=== PATIENT | male | born 1965 | race Caucasian/White ===

== ENCOUNTER → 2018-01-24 07:09 | Outpatient (CLI) | payer OTHER, SELFPAY ==
[2018-01-24 08:06] LABS: Appearance Urine UA CLEAR; Bilirubin Urine UA NEGATIVE (NEGATIVE); Color Urine UA YELLOW; Glucose Urine UA NEGATIVE (Negative); Ketones Urine UA NEGATIVE (NEGATIVE); Leukocyte Esterase Urine UA NEGATIVE (NEGATIVE); Nitrite Urine UA NEGATIVE (NEGATIVE); Occult Blood Urine UA NEGATIVE (Negative); Protein Urine UA TRACE (Negative); Specific Gravity Urine UA 1.015 (1.000-1.035); Urobilinogen Urine UA 0.2 E.U./dL (0.2); pH Urine UA 5.5 (4.5-8.0)
[2018-01-24 08:08] LABS: Add Manual Diff / Slide Review NO; Basophils Percent Auto 0.3 % (0-2); Eosinophils Percent Auto 4.9 % (2-4); Hematocrit 46.7 % (41-53); Hemoglobin 16.2 g/dL (13.5-17.5); Lymphocytes Percent Auto 14.3 % (25-40); Mean Corpuscular HGB Conc 34.6 % (30-36); Mean Corpuscular Hemoglobin 29.9 PG (26-34); Mean Corpuscular Volume 86.4 fL (80-100); Monocytes Percent Auto 8.7 % (3-14); Neutrophils Absolute Auto 4400 /uL (3000-5900); Neutrophils Percent Auto 71.8 % (50-75); Platelet Count 174 X10^3/uL (150-400); Red Blood Cell Count 5.41 X10^6/uL (4.5-5.9); Red Cell Distribution Width 14.2 % (11.6-14.8); White Blood Cell Count 6.1 X10^3/uL (4.5-11.0)
[2018-01-24 08:14] LABS: Culture Indicated Urine Cult Not Indicated; Urine Comments Microscopic Normal
[2018-01-24 08:20] LABS: Alanine Aminotransferase 34 IU/L (21-72); Albumin 4.2 g/dL (3.5-5.0); Albumin Globulin Ratio 1.5 (1.0-2.8); Alkaline Phosphatase 68 U/L (38-126); Aspartate Aminotransferase 26 IU/L (17-59); BUN Creatinine Ratio 14.3 (6-22); Bilirubin Total 0.8 mg/dL (0.2-1.3); Calcium 9.2 mg/dL (8.4-10.2); Globulin 2.8 g/dL (1.7-4.1); Glucose 103 mg/dL (70-100); HEMOLYSIS < 15 (0-50); Potassium 4.7 mmol/L (3.4-5.1); Sodium 141 mmol/L (137-145)
[2018-01-24 08:41] LABS: Creatinine Urine Random 47.9 mg/dL; Protein (Total) Urine Random 41 mg/dL (0-12); Protein Creatinine Ratio Urine 0.85 GRAM/24H
== END ==
PROVIDERS: PCP Nurse Practitioner Family; Visit Provider Specialist
DX: N18.3 Chronic kidney disease, stage 3 (moderate) (principal); I12.9 Hypertensive chronic kidney disease with stage 1 through stage 4 chronic kidney disease, or unspecified chronic kidney disease
CPT/HCPCS: 36415; 80053; 81001; 82570; 84156; 85025

== ENCOUNTER → 2018-08-08 14:00 | Outpatient (CLI) | payer OTHER, SELFPAY | PROVIDERS: PCP Nurse Practitioner Family | DX: Z23 Encounter for immunization (principal) | CPT/HCPCS: 90471; 90686 ==

== ENCOUNTER → 2019-02-05 07:06 | Outpatient (CLI) | payer OTHER, SELFPAY ==
[2019-02-05 09:00] LABS: Alanine Aminotransferase 25 IU/L (21-72); Albumin Globulin Ratio 1.4 (1.0-2.8); Alkaline Phosphatase 69 U/L (38-126); Aspartate Aminotransferase 22 IU/L (17-59); BUN Creatinine Ratio 17.1 (6-22); Bilirubin Total 0.7 mg/dL (0.2-1.3); Blood Urea Nitrogen 24 mg/dL (9-20); Calcium 9.1 mg/dL (8.4-10.2); Carbon Dioxide 27 mmol/L (22-32); Chloride 102 mmol/L (98-107); Cholesterol 113 mg/dL (140-199); Estimated Glomerular Filt Rate 52.8 mL/min (>60); Globulin 2.8 g/dL (1.7-4.1); Glucose 133 mg/dL (70-100); HDL Cholesterol 31 mg/dL (40-60); HEMOLYSIS < 15 (0-50); LDL Cholesterol Calculated 52 mg/dL (<100); Potassium 4.1 mmol/L (3.4-5.1); Sodium 137 mmol/L (137-145); Total Protein 6.8 g/dL (6.3-8.2); Triglycerides 151 mg/dL (35-150)
[2019-02-05 10:12] LABS: Hemoglobin A1C% w Est Avg Glu 7.3 % (4.0-6.0)
== END ==
PROVIDERS: Family Provider Specialist; PCP Nurse Practitioner Family; Visit Provider Internal Medicine
DX: E11.9 Type 2 diabetes mellitus without complications (principal); E78.5 Hyperlipidemia, unspecified
CPT/HCPCS: 36415; 80053; 80061; 83036

== ENCOUNTER → 2019-04-03 06:55 | Outpatient (CLI) | payer OTHER, SELFPAY ==
[2019-04-03 07:05] LABS: Bacteria Urine None Seen; RBC Urine None Seen (0-5/HPF); WBC Urine None Seen (0-5/HPF)
[2019-04-03 08:22] LABS: Appearance Urine UA CLEAR; Bilirubin Urine UA NEGATIVE (NEGATIVE); Color Urine UA YELLOW; Glucose Urine UA TRACE g/dL (Negative); Ketones Urine UA NEGATIVE (NEGATIVE); Leukocyte Esterase Urine UA NEGATIVE (NEGATIVE); Nitrite Urine UA NEGATIVE (Negative); Occult Blood Urine UA NEGATIVE (Negative); Protein Urine UA 2+ (Negative); Specific Gravity Urine UA 1.025 (1.000-1.035); Urobilinogen Urine UA 0.2 E.U./dL (0.2); pH Urine UA 5.5 (4.5-8.0)
[2019-04-03 08:59] LABS: Culture Indicated Urine Cult Not Indicated; Urine Comments Microscopic Normal
[2019-04-03 09:16] LABS: Alanine Aminotransferase 29 IU/L (21-72); Albumin 4.2 g/dL (3.5-5.0); Albumin Globulin Ratio 1.6 (1.0-2.8); Alkaline Phosphatase 76 U/L (38-126); Aspartate Aminotransferase 23 IU/L (17-59); BUN Creatinine Ratio 16.4 (6-22); Bilirubin Total 0.8 mg/dL (0.2-1.3); Blood Urea Nitrogen 23 mg/dL (9-20); Calcium 9.1 mg/dL (8.4-10.2); Carbon Dioxide 26 mmol/L (22-32); Chloride 101 mmol/L (98-107); Estimated Glomerular Filt Rate 52.8 mL/min (>60); Globulin 2.6 g/dL (1.7-4.1); Glucose 141 mg/dL (70-100); HEMOLYSIS < 15 (0-50); Phosphorous 3.9 mg/dL (2.5-4.5); Potassium 4.7 mmol/L (3.4-5.1); Sodium 138 mmol/L (137-145); Total Protein 6.8 g/dL (6.3-8.2)
[2019-04-03 16:04] LABS: Creatinine Urine Random 75.7 mg/dL
[2019-04-03 16:47] LABS: Microalbumi Creatinin Ratio Ur 1030.3 ug/mg CR (<30)
[2019-04-05 15:58] LABS: Parathyroid Hormone Int 104 pg/mL (14-64)
== END ==
PROVIDERS: Family Provider Nurse Practitioner Family; PCP Nurse Practitioner Family; Visit Provider Specialist
DX: N18.3 Chronic kidney disease, stage 3 (moderate) (principal); E78.2 Mixed hyperlipidemia; N25.0 Renal osteodystrophy; D63.1 Anemia in chronic kidney disease
CPT/HCPCS: 36415; 80053; 81001; 82043; 82570; 83970; 84100

== ENCOUNTER → 2019-04-23 07:07 | Outpatient (CLI) | payer OTHER, SELFPAY ==
[2019-04-23 09:13] LABS: Alanine Aminotransferase 22 IU/L (21-72); Albumin 4.2 g/dL (3.5-5.0); Albumin Globulin Ratio 1.4 (1.0-2.8); Alkaline Phosphatase 87 U/L (38-126); Aspartate Aminotransferase 20 IU/L (17-59); Bilirubin Total 0.6 mg/dL (0.2-1.3); Blood Urea Nitrogen 24 mg/dL (9-20); Calcium 9.6 mg/dL (8.4-10.2); Carbon Dioxide 26 mmol/L (22-32); Chloride 103 mmol/L (98-107); Estimated Glomerular Filt Rate 45.3 mL/min (>60); Globulin 3.1 g/dL (1.7-4.1); Glucose 153 mg/dL (70-100); HEMOLYSIS < 15 (0-50); Potassium 4.4 mmol/L (3.4-5.1); Sodium 140 mmol/L (137-145); Total Protein 7.3 g/dL (6.3-8.2)
== END ==
PROVIDERS: PCP Internal Medicine
DX: I10 Essential (primary) hypertension (principal); I12.9 Hypertensive chronic kidney disease with stage 1 through stage 4 chronic kidney disease, or unspecified chronic kidney disease; N18.3 Chronic kidney disease, stage 3 (moderate)
CPT/HCPCS: 36415; 80053

== ENCOUNTER → 2019-05-28 11:57 | Outpatient (CLI) | payer OTHER, SELFPAY | PROVIDERS: PCP Internal Medicine | DX: Z23 Encounter for immunization (principal) | CPT/HCPCS: 90471; 90686 ==

== ENCOUNTER → 2019-12-19 07:20 | Outpatient (CLI) | payer OTHER, SELFPAY ==
[2019-12-19 10:08] LABS: Alanine Aminotransferase 44 IU/L (<50); Albumin 4.3 g/dL (3.5-5.0); Albumin Globulin Ratio 1.4 (1.0-2.8); Alkaline Phosphatase 80 U/L (38-126); Aspartate Aminotransferase 46 IU/L (17-59); BUN Creatinine Ratio 16.5 (6-22); Bilirubin Total 0.6 mg/dL (0.2-1.3); Blood Urea Nitrogen 23 mg/dL (9-20); Calcium 9.3 mg/dL (8.4-10.2); Carbon Dioxide 25 mmol/L (22-32); Chloride 102 mmol/L (98-107); Cholesterol 148 mg/dL (140-199); Estimated Glomerular Filt Rate 53.1 mL/min (>60); Glucose 170 mg/dL (70-100); HDL Cholesterol 39 mg/dL (40-60); HEMOLYSIS < 15 (0-50); LDL Cholesterol Calculated 79 mg/dL (<100); Potassium 4.1 mmol/L (3.4-5.1); Sodium 138 mmol/L (137-145); Total Protein 7.3 g/dL (6.3-8.2); Triglycerides 152 mg/dL (35-150)
[2019-12-19 11:52] LABS: Hemoglobin A1C% w Est Avg Glu 8.4 % (4.0-6.0)
== END ==
PROVIDERS: PCP Internal Medicine; Referring Provider Internal Medicine; Visit Provider Internal Medicine
DX: E11.9 Type 2 diabetes mellitus without complications (principal)
CPT/HCPCS: 36415; 80053; 80061; 83036

== ENCOUNTER → 2020-07-01 07:12 | Outpatient (CLI) | payer OTHER, SELFPAY ==
[2020-07-01 07:17] LABS: Bacteria Urine None Seen; RBC Urine None Seen (0-5/HPF); WBC Urine None Seen (0-5/HPF)
[2020-07-01 08:05] LABS: Add Manual Diff / Slide Review NO; Basophils Absolute Auto 0 /uL (0-100); Basophils Percent Auto 0.6 % (0-2); Eosinophils Absolute Auto 400 /uL (0-450); Eosinophils Percent Auto 6.6 % (2-4); Hematocrit 47.1 % (41-53); Hemoglobin 15.7 g/dL (13.5-17.5); Lymphocytes Absolute Auto 1000 /uL (1100-4500); Lymphocytes Percent Auto 15.8 % (25-40); Mean Corpuscular HGB Conc 33.4 % (30-36); Mean Corpuscular Hemoglobin 29.2 PG (26-34); Mean Corpuscular Volume 87.7 fL (80-100); Monocytes Absolute Auto 500 /uL (0-900); Neutrophils Absolute Auto 4300 /uL (1500-7000); Platelet Count 188 X10^3/uL (150-400); Red Blood Cell Count 5.38 X10^6/uL (4.5-5.9); Red Cell Distribution Width 13.9 % (11.6-14.8); White Blood Cell Count 6.2 X10^3/uL (4.5-11.0)
[2020-07-01 08:09] LABS: Appearance Urine UA CLEAR; Bilirubin Urine UA NEGATIVE (NEGATIVE); Color Urine UA YELLOW; Glucose Urine UA 1+ g/dL (Negative); Ketones Urine UA NEGATIVE (NEGATIVE); Leukocyte Esterase Urine UA NEGATIVE (NEGATIVE); Nitrite Urine UA NEGATIVE (Negative); Occult Blood Urine UA TRACE-LYSED (Negative); Protein Urine UA 2+ (Negative); Specific Gravity Urine UA 1.015 (1.000-1.035); Urobilinogen Urine UA 0.2 E.U./dL (0.2); pH Urine UA 5.5 (4.5-8.0)
[2020-07-01 08:14] LABS: Creatinine Urine Random 66.7 mg/dL; Protein (Total) Urine Random 182 mg/dL (0-12); Protein Creatinine Ratio Urine 2.72 GRAM/24H
[2020-07-01 08:19] LABS: Hemoglobin A1C% w Est Avg Glu 9.4 % (4.0-6.0)
[2020-07-01 08:20] LABS: Culture Indicated Urine Cult Not Indicated; Urine Comments Microscopic Normal
[2020-07-01 11:45] LABS: HEMOLYSIS 27 (0-50); Prostate Specific Antigen Scrn 4.73 ng/mL (0.1-4.0)
[2020-07-01 12:33] LABS: Alanine Aminotransferase 19 IU/L (<50); Albumin 3.9 g/dL (3.5-5.0); Albumin Globulin Ratio 1.4 (1.0-2.8); Alkaline Phosphatase 101 U/L (38-126); Aspartate Aminotransferase 31 IU/L (17-59); BUN Creatinine Ratio 14.7 (6-22); Bilirubin Total 0.7 mg/dL (0.2-1.3); Blood Urea Nitrogen 21 mg/dL (9-20); Carbon Dioxide 24 mmol/L (22-32); Chloride 103 mmol/L (98-107); Estimated Glomerular Filt Rate 51.2 mL/min (>60); Globulin 2.7 g/dL (1.7-4.1); Glucose 218 mg/dL (70-100); Phosphorous 3.8 mg/dL (2.5-4.5); Potassium 4.8 mmol/L (3.4-5.1); Sodium 135 mmol/L (137-145); Total Protein 6.6 g/dL (6.3-8.2)
[2020-07-02 07:21] LABS: Parathyroid Hormone Int 86 pg/mL (15-65)
== END ==
PROVIDERS: PCP Internal Medicine; Referring Provider Internal Medicine; Visit Provider Internal Medicine
DX: E11.65 Type 2 diabetes mellitus with hyperglycemia (principal); I10 Essential (primary) hypertension; I50.30 Unspecified diastolic (congestive) heart failure; N18.30 Chronic kidney disease, stage 3 unspecified; Z12.5 Encounter for screening for malignant neoplasm of prostate
CPT/HCPCS: 36415; 80053; 81001; 82570; 83036; 83970; 84100; 84156; 85025; G0103

== ENCOUNTER → 2020-07-28 13:44 | Outpatient (CLI) | payer OTHER, SELFPAY | PROVIDERS: PCP Internal Medicine; Referring Provider Internal Medicine; Visit Provider Internal Medicine | DX: Z23 Encounter for immunization (principal) | CPT/HCPCS: 90471; 90686 ==

== ENCOUNTER → 2020-08-21 09:56 | Outpatient (CLI) | payer OTHER, SELFPAY | PROVIDERS: PCP Internal Medicine; Referring Provider Internal Medicine; Visit Provider Internal Medicine | DX: R97.20 Elevated prostate specific antigen [PSA] (principal) | CPT/HCPCS: 36415; 84153; 84154 ==

== ENCOUNTER → 2020-09-03 09:21 | Outpatient (CLI) | payer OTHER, SELFPAY ==
[2020-09-03] MEDS: COVID-19 VACC(MODERNA-1)/PF 100 MCG/0.5 ML VIAL IM (09:28)
== END ==
PROVIDERS: PCP Internal Medicine; Visit Provider Internal Medicine
DX: Z23 Encounter for immunization (principal)
CPT/HCPCS: 0011A; 91301

== ENCOUNTER → 2020-09-30 08:33 | Outpatient (CLI) | payer OTHER, SELFPAY ==
[2020-09-30] MEDS: COVID-19 VACC #2, MRNA(MOD) 100 MCG/0.5 ML VIAL IM (08:38)
== END ==
PROVIDERS: PCP Internal Medicine; Visit Provider Internal Medicine
DX: Z23 Encounter for immunization (principal)
CPT/HCPCS: 0012A; 91301

== ENCOUNTER → 2020-12-23 07:01 | Outpatient (CLI) | payer OTHER, SELFPAY ==
[2020-12-23 08:00] LABS: BUN Creatinine Ratio 20.3 (6-22); Blood Urea Nitrogen 30 mg/dL (9-20); Calcium 9.4 mg/dL (8.4-10.2); Carbon Dioxide 27 mmol/L (22-32); Chloride 102 mmol/L (98-107); Estimated Glomerular Filt Rate 49.2 mL/min (>60); Glucose 227 mg/dL (70-100); HEMOLYSIS < 15 (0-50); Phosphorous 4.2 mg/dL (2.5-4.5); Potassium 4.9 mmol/L (3.4-5.1); Sodium 135 mmol/L (137-145)
[2020-12-24 06:02] LABS: Parathyroid Hormone Int 72 pg/mL (15-65)
== END ==
PROVIDERS: PCP Internal Medicine; Referring Provider Internal Medicine Nephrology; Visit Provider Internal Medicine Nephrology
DX: N18.31 Chronic kidney disease, stage 3a (principal)
CPT/HCPCS: 36415; 80069; 82306; 83970

== ENCOUNTER → 2021-02-03 07:16 | Outpatient (CLI) | payer OTHER, SELFPAY ==
[2021-02-03 08:16] LABS: Hemoglobin A1C% w Est Avg Glu 9.9 % (4.0-6.0)
[2021-02-03 08:21] LABS: Alanine Aminotransferase 21 IU/L (<50); Albumin 3.6 g/dL (3.5-5.0); Albumin Globulin Ratio 1.4 (1.0-2.8); Alkaline Phosphatase 85 U/L (38-126); Aspartate Aminotransferase 25 IU/L (17-59); BUN Creatinine Ratio 16.6 (6-22); Bilirubin Total 0.4 mg/dL (0.2-1.3); Blood Urea Nitrogen 24 mg/dL (9-20); Calcium 9.1 mg/dL (8.4-10.2); Carbon Dioxide 27 mmol/L (22-32); Chloride 102 mmol/L (98-107); Estimated Glomerular Filt Rate 50.3 mL/min (>60); Globulin 2.5 g/dL (1.7-4.1); Glucose 215 mg/dL (70-100); HEMOLYSIS < 15 (0-50); Potassium 4.9 mmol/L (3.4-5.1); Sodium 136 mmol/L (137-145); Total Protein 6.1 g/dL (6.3-8.2)
== END ==
PROVIDERS: PCP Internal Medicine; Referring Provider Internal Medicine; Visit Provider Internal Medicine
DX: E11.65 Type 2 diabetes mellitus with hyperglycemia (principal); I10 Essential (primary) hypertension
CPT/HCPCS: 36415; 80053; 83036

== ENCOUNTER → 2021-03-18 11:22 | Outpatient (CLI) | payer OTHER, SELFPAY ==
[2021-03-18 12:28] LABS: Hemoglobin A1C% w Est Avg Glu 9.1 % (4.0-6.0)
[2021-03-18 12:44] LABS: BUN Creatinine Ratio 17.2 (6-22); Blood Urea Nitrogen 27 mg/dL (9-20); Calcium 9.6 mg/dL (8.4-10.2); Carbon Dioxide 28 mmol/L (22-32); Chloride 102 mmol/L (98-107); Estimated Glomerular Filt Rate 45.9 mL/min (>60); Glucose 160 mg/dL (70-100); HEMOLYSIS < 15 (0-50); Sodium 136 mmol/L (137-145)
== END ==
PROVIDERS: PCP Internal Medicine; Referring Provider Internal Medicine; Visit Provider Internal Medicine
DX: E11.65 Type 2 diabetes mellitus with hyperglycemia (principal); I10 Essential (primary) hypertension
CPT/HCPCS: 36415; 80048; 83036

== ENCOUNTER → 2021-08-02 11:19 | Outpatient (CLI) | payer OTHER, SELFPAY ==
[2021-08-02 13:08] LABS: Add Manual Diff / Slide Review NO; Basophils Absolute Auto 0 /uL (0-100); Basophils Percent Auto 0.4 % (0-2); Eosinophils Absolute Auto 300 /uL (0-450); Eosinophils Percent Auto 4.8 % (2-4); Hematocrit 42.3 % (41-53); Hemoglobin 14.5 g/dL (13.5-17.5); Lymphocytes Absolute Auto 1200 /uL (1100-4500); Lymphocytes Percent Auto 18.3 % (25-40); Mean Corpuscular HGB Conc 34.2 % (30-36); Mean Corpuscular Hemoglobin 29.7 PG (26-34); Mean Corpuscular Volume 86.7 fL (80-100); Monocytes Absolute Auto 500 /uL (0-900); Monocytes Percent Auto 7.1 % (3-14); Neutrophils Absolute Auto 4400 /uL (1500-7000); Neutrophils Percent Auto 69.4 % (50-75); Platelet Count 172 X10^3/uL (150-400); Red Blood Cell Count 4.88 X10^6/uL (4.5-5.9); Red Cell Distribution Width 13.9 % (11.6-14.8); White Blood Cell Count 6.4 X10^3/uL (4.5-11.0)
[2021-08-02 14:04] LABS: Albumin 3.8 g/dL (3.5-5.0); Blood Urea Nitrogen 26 mg/dL (9-20); Calcium 9.1 mg/dL (8.4-10.2); Carbon Dioxide 30 mmol/L (22-32); Chloride 100 mmol/L (98-107); Estimated Glomerular Filt Rate 44.1 mL/min (>60); Glucose 177 mg/dL (70-100); HEMOLYSIS < 15 (0-50); Phosphorous 3.3 mg/dL (2.5-4.5); Potassium 5.3 mmol/L (3.4-5.1); Sodium 136 mmol/L (137-145)
[2021-08-02 15:41] LABS: Creatinine Urine Random 152.8 mg/dL
[2021-08-02 15:56] LABS: Vitamin D 25 Hydroxy (D3) 39.2 ng/mL (30.0-100.0)
[2021-08-02 16:44] LABS: Microalbumi Creatinin Ratio Ur 6321.9 ug/mg CR (<30)
[2021-08-03 09:04] LABS: Parathyroid Hormone Int 105 pg/mL (15-65)
== END ==
PROVIDERS: PCP Internal Medicine; Referring Provider Internal Medicine Nephrology; Visit Provider Internal Medicine Nephrology
DX: N18.31 Chronic kidney disease, stage 3a (principal); E83.39 Other disorders of phosphorus metabolism
CPT/HCPCS: 36415; 80069; 82043; 82306; 82570; 83970; 85025

== ENCOUNTER → 2021-08-18 16:11 | Outpatient (CLI) | payer OTHER, SELFPAY ==
[2021-08-18 18:44] LABS: BUN Creatinine Ratio 16.9 (6-22); Blood Urea Nitrogen 28 mg/dL (9-20); Calcium 9.3 mg/dL (8.4-10.2); Carbon Dioxide 29 mmol/L (22-32); Chloride 102 mmol/L (98-107); Estimated Glomerular Filt Rate 42.9 mL/min (>60); Glucose 205 mg/dL (70-100); HEMOLYSIS < 15 (0-50); Potassium 4.7 mmol/L (3.4-5.1); Sodium 136 mmol/L (137-145)
[2021-08-18 19:39] LABS: Creatinine Urine Random 119.1 mg/dL
[2021-08-18 20:05] LABS: Protein (Total) Urine Random 535 mg/dL (0-12); Protein Creatinine Ratio Urine 4.49 GRAM/24H
[2021-08-19 03:51] LABS: Complement C3 147 mg/dL (82-167)
[2021-08-19 14:41] LABS: Free Kappa Lt Chains, Serum 39.2 mg/L (3.3-19.4); Free Lambda Lt Chains,Serum 43.4 mg/L (5.7-26.3)
[2021-08-19 15:35] LABS: HIV 1 & 2 Ab/Ag 4th Gen Combo NEGATIVE (NEGATIVE); Hep C Virus Ab w/Reflex Quant NEGATIVE s/c (NEGATIVE)
[2021-08-20 13:18] LABS: Cytoplasmic C-ANCA <1:20 titer (Neg:<1:20); Perinuclear P-ANCA <1:20 titer (Neg:<1:20)
[2021-08-20 15:05] LABS: Albumin 3.6 g/dL (2.9-4.4); Alpha-1 Globulin, Ur 4.9 % (.); Alpha-1-Globulin 0.2 g/dL (0.0-0.4); Alpha-2-Globulin 0.8 g/dL (0.4-1.0); Beta Globulin, Ur 14.5 % (.); Gamma Globulin 0.9 g/dL (0.4-1.8); Gamma Globulin, Ur 11.8 % (.); Globulin Total 2.8 g/dL (2.2-3.9); Immunoglobulin A, Serum 146 mg/dL (90-386); Immunoglobulin G,Serum 785 mg/dL (603-1613); Immunoglobulin M, Serum 84 mg/dL (20-172); M-Spike % Not Observed % (Not Observed); Protein, Total 6.4 g/dL (6.0-8.5); Urine Total Protein 381.9 mg/dL (Not Estab.)
[2021-08-20 18:12] LABS: ANA Screen, IFA Positive (.)
== END ==
PROVIDERS: PCP Internal Medicine; Referring Provider Internal Medicine Nephrology; Visit Provider Internal Medicine Nephrology
DX: R80.9 Proteinuria, unspecified (principal)
CPT/HCPCS: 36415; 80048; 82570; 82784; 83516; 83883; 84155; 84156; 84165; 84166; 86038; 86160; 86256; 86334; 86335; 86803; 87389

== ENCOUNTER → 2021-10-25 12:08 | Outpatient (CLI) | payer OTHER, SELFPAY ==
--- NOTE | 2021-10-25 | DI.ECHO.S_ITS ---
[facility]---------+ [facility] +---------+ : : [address] : [address] : : : : [id number] : : : : Phone: [phone]+ Echocardiogram Report + + :Name: LORE SOW Study Date: 10/25/2021 Height: 73 in : :[facility] ReadingLocation: Weight: 300 lb : : Gender: Male BSA: 2.6 m2 : :: 1965 Age: 56 yrs BP: 192/110 mmHg: :Reason For Study: ATRIAL FIBRILLATION : :Ordering Physician: UBALDO, : :BO[place]ON Performed By: Anyi Cao : :Referring: BOSTON CONNER : + + Interpretation Summary The left ventricle is normal in size. The ejection fraction is estimated to be 60-65%. No significant change in LVEF from the previous study. Diastolic parameters suggest a pseudonormalization pattern, consistent with probable elevated filling pressures. The right ventricle is normal in size and function. No significant valvular pathology seen. The right ventricular systolic pressure is estimated to be at least 38 mmHg based on an estimated right atrial pressure of 3 mm Hg. Compared to the prior echo exam, there has been no change in the severity of pulmonary hypertension. The ascending aorta is mild-moderately enlarged. 4.1 cm in diameter. Previously 3.7 cm. The aortic arch is mildly enlarged. BP: 192/110 mmHg Procedure: A two-dimensional transthoracic echocardiogram with color flow and Doppler was performed. The study quality was technically adequate. Comparison is made with the echocardiogram of 03/20/2014. The patient was in sinus bradycardia with heart rates between 55-66 bpm during the exam. Left Ventricle: The left ventricle is normal in size. There is mild concentric left ventricular hypertrophy. Proximal septal thickening is noted. There is no echo evidence for significant left ventricular outflow tract obstruction. There is no thrombus. The ejection fraction is estimated to be 60-65%. There are no focal wall motion abnormalities. Diastolic parameters suggest a pseudonormalization pattern, consistent with probable elevated filling pressures. Right Ventricle: The right ventricle is normal in size and function. Atria: The left atrial size is normal. Both atria have mildly decreased in size since the prior echo exam. Right atrial size is normal. There is no Doppler evidence for an interatrial shunt. Mitral Valve: The mitral valve leaflets are slightly calcified. There is trace mitral regurgitation. Aortic Valve: The aortic valve is trileaflet. The aortic valve opens well. There is no aortic valve stenosis. There is trace aortic regurgitation. This is unchanged compared to the previous study. Tricuspid Valve: The tricuspid valve is normal in structure and function. There is trace tricuspid regurgitation. The right ventricular systolic pressure is estimated to be at least 38 mmHg based on an estimated right atrial pressure of 3 mm Hg. Compared to the prior echo exam, there has been no change in TR severity. Compared to the prior echo exam, there has been no change in the severity of pulmonary hypertension. Pulmonic Valve: The pulmonic valve is not well visualized. There is trace pulmonic regurgitation. Great Vessels: The aortic root is normal size. The ascending aorta is mild- moderately enlarged. The aortic arch is mildly enlarged. The IVC is of normal diameter and collapses greater than 50% with a sniff. This suggests a low right atrial pressure of 3 mm Hg. Pericardium/ Pleura There is no pericardial effusion. There is an anterior echo-free space consistent with a fat pad. There is no pleural effusion. MMode/2D Measurements & Calculations LVIDd: 5.2 cm LVOT diam: 2.5 cm LVIDs: 3.3 cm Ao root diam: 3.8 cm FS: 36.8 % asc Aorta Diam: 4.1 cm IVSd: 1.2 cm Ao Arch Diam (Prox Trans): 3.5 cm LVPWd: 1.1 cm LV uf. diameter/BSA (cm/m^2): 2.0 LV sys. diameter/BSA (cm/m^2): 1.3 LA A2 area: 27.2 cm2 RA long axis: 5.3 cm LA A4 area: 19.6 cm2 RA area: 14.7 cm2 LA length (vol): 6.1 cm RA vol: 34.9 ml LA vol: 75.0 ml RA : 13.6 ml/m2 LA vol index: 29.3 ml/m2 IVC diam: 1.7 cm RVD1 (basal): 3.3 cm TAPSE: 2.2 cm Doppler Measurements & Calculations Ao V2 max: 140.2 cm/sec LVOT Max Jam: 90.4 cm/sec Ao V2 mean: 97.8 cm/sec LV V1 max P.3 mmHg Ao max P.9 mmHg LV V1 VTI: 21.1 cm Ao mean P.2 mmHg NOHEMI(I,D): 3.5 cm2 Ao V2 VTI: 30.5 cm NOHEMI(V,D): 3.3 cm2 sev ratio: 0.69 NOHEMI indexed to BSA (cm^2/m^2): 1.4 MV E max jam: 109.2 cm/sec TR max jam: 295.0 cm/sec MV A max jam: 75.6 cm/sec TR max P.8 mmHg MV E/A: 1.4 PA V2 max: 111.3 cm/sec Med Peak E' Jam: 5.2 cm/sec PA V2 mean: 75.4 cm/sec E/E' med: 21.0 PA mean P.5 mmHg Lat Peak E' Jam: 8.9 cm/sec PA pr(Accel): 32.8 mmHg E/E' lat: 12.3 E/e' average: 16.7 MV dec time: 0.18 sec SV(LVOT): 107.0 ml Reading Physician:11:07 AM
== END ==
PROVIDERS: PCP Internal Medicine; Referring Provider Internal Medicine Cardiovascular Disease; Visit Provider Internal Medicine Cardiovascular Disease
DX: I77.89 Other specified disorders of arteries and arterioles (principal); I48.0 Paroxysmal atrial fibrillation
CPT/HCPCS: 93306

== ENCOUNTER → 2021-10-27 06:54 | Outpatient (CLI) | payer OTHER, SELFPAY ==
[2021-10-27 08:20] LABS: BUN Creatinine Ratio 16.7 (6-22); Blood Urea Nitrogen 30 mg/dL (9-20); Calcium 8.9 mg/dL (8.4-10.2); Carbon Dioxide 30 mmol/L (22-32); Chloride 102 mmol/L (98-107); Cholesterol 186 mg/dL (140-199); Estimated Glomerular Filt Rate 39.1 mL/min (>60); Glucose 189 mg/dL (70-100); HDL Cholesterol 40 mg/dL (40-60); HEMOLYSIS < 15 (0-50); LDL Cholesterol Calculated 109 mg/dL (<100); Sodium 135 mmol/L (137-145); Triglycerides 185 mg/dL (35-150)
[2021-10-27 08:23] LABS: Potassium 5.4 mmol/L (3.4-5.1)
== END ==
PROVIDERS: PCP Internal Medicine; Referring Provider Internal Medicine Cardiovascular Disease; Visit Provider Internal Medicine Cardiovascular Disease
DX: I10 Essential (primary) hypertension (principal); E78.5 Hyperlipidemia, unspecified
CPT/HCPCS: 36415; 80048; 80061

== ENCOUNTER → 2021-11-16 07:05 | Outpatient (CLI) | payer OTHER, SELFPAY ==
[2021-11-16 08:44] LABS: Add Manual Diff / Slide Review NO; Basophils Absolute Auto 0 /uL (0-100); Basophils Percent Auto 0.3 % (0-2); Eosinophils Absolute Auto 300 /uL (0-450); Eosinophils Percent Auto 5.4 % (2-4); Hematocrit 44.5 % (41-53); Lymphocytes Absolute Auto 700 /uL (1100-4500); Lymphocytes Percent Auto 12.6 % (25-40); Mean Corpuscular HGB Conc 33.7 % (30-36); Mean Corpuscular Hemoglobin 29.3 PG (26-34); Mean Corpuscular Volume 87.1 fL (80-100); Monocytes Absolute Auto 500 /uL (0-900); Neutrophils Absolute Auto 4200 /uL (1500-7000); Neutrophils Percent Auto 72.7 % (50-75); Platelet Count 165 X10^3/uL (150-400); Red Cell Distribution Width 13.9 % (11.6-14.8); White Blood Cell Count 5.8 X10^3/uL (4.5-11.0)
[2021-11-16 09:11] LABS: Albumin 3.7 g/dL (3.5-5.0); BUN Creatinine Ratio 12.9 (6-22); Blood Urea Nitrogen 22 mg/dL (9-20); Calcium 8.7 mg/dL (8.4-10.2); Carbon Dioxide 27 mmol/L (22-32); Chloride 101 mmol/L (98-107); Estimated Glomerular Filt Rate 41.5 mL/min (>60); Glucose 178 mg/dL (70-100); HEMOLYSIS < 15 (0-50); Phosphorous 3.7 mg/dL (2.5-4.5); Potassium 4.6 mmol/L (3.4-5.1); Sodium 136 mmol/L (137-145)
[2021-11-16 09:18] LABS: Appearance Urine UA CLEAR; Bilirubin Urine UA NEGATIVE (NEGATIVE); Color Urine UA YELLOW; Glucose Urine UA 3+ g/dL (Negative); Ketones Urine UA NEGATIVE (NEGATIVE); Leukocyte Esterase Urine UA NEGATIVE (NEGATIVE); Nitrite Urine UA NEGATIVE (Negative); Occult Blood Urine UA TRACE-LYSED (Negative); Protein Urine UA 3+ (Negative); Specific Gravity Urine UA 1.015 (1.000-1.035); Urobilinogen Urine UA 0.2 E.U./dL (0.2); pH Urine UA 6.5 (4.5-8.0)
[2021-11-16 09:31] LABS: Amorphous Sediment Urine 2+; Bacteria Urine None Seen; Culture Indicated Urine Cult Not Indicated; RBC Urine 0-1/HPF (0-5/HPF); Squamous Epithelial Cell Urine 1-5 /HPF (0-5/HPF); WBC Urine None Seen (0-5/HPF)
[2021-11-16 11:45] LABS: Creatinine Urine Random 86.2 mg/dL
[2021-11-16 11:46] LABS: Protein (Total) Urine Random 353 mg/dL (0-12); Protein Creatinine Ratio Urine 4.09 GRAM/24H
== END ==
PROVIDERS: PCP Internal Medicine; Referring Provider Internal Medicine Nephrology; Visit Provider Internal Medicine Nephrology
DX: R80.9 Proteinuria, unspecified (principal); N18.32 Chronic kidney disease, stage 3b
CPT/HCPCS: 36415; 80069; 81001; 82570; 84156; 85025

== ENCOUNTER → 2022-03-02 06:59 | Outpatient (CLI) | payer OTHER, SELFPAY ==
[2022-03-02 08:13] LABS: Add Manual Diff / Slide Review NO; Basophils Absolute Auto 0 /uL (0-100); Basophils Percent Auto 0.5 % (0-2); Eosinophils Absolute Auto 300 /uL (0-450); Eosinophils Percent Auto 4.9 % (2-4); Hematocrit 46.9 % (41-53); Hemoglobin 15.8 g/dL (13.5-17.5); Lymphocytes Absolute Auto 800 /uL (1100-4500); Lymphocytes Percent Auto 12.5 % (25-40); Mean Corpuscular HGB Conc 33.7 % (30-36); Mean Corpuscular Volume 86.1 fL (80-100); Monocytes Absolute Auto 500 /uL (0-900); Neutrophils Absolute Auto 4800 /uL (1500-7000); Neutrophils Percent Auto 74.1 % (50-75); Platelet Count 173 X10^3/uL (150-400); Red Blood Cell Count 5.45 X10^6/uL (4.5-5.9); Red Cell Distribution Width 14.4 % (11.6-14.8); White Blood Cell Count 6.4 X10^3/uL (4.5-11.0)
[2022-03-02 08:32] LABS: Microalbumi Creatinin Ratio Ur 1397.2 ug/mg CR (<30); Microalbumin Urine Random 50.3 mg/dL (0-1.6)
[2022-03-02 08:42] LABS: Albumin 3.9 g/dL (3.5-5.0); BUN Creatinine Ratio 14.5 (6-22); Blood Urea Nitrogen 24 mg/dL (9-20); Calcium 8.6 mg/dL (8.4-10.2); Carbon Dioxide 25 mmol/L (22-32); Chloride 102 mmol/L (98-107); Estimated Glomerular Filt Rate 48 mL/min (>60); Glucose 168 mg/dL (70-100); HEMOLYSIS < 15 (0-50); Phosphorous 3.8 mg/dL (2.5-4.5); Sodium 137 mmol/L (137-145)
[2022-03-02 08:44] LABS: Hemoglobin A1C% w Est Avg Glu 9.6 % (4.0-6.0)
[2022-03-02 08:53] LABS: Vitamin D 25 Hydroxy (D3) 50.4 ng/mL (30.0-100.0)
[2022-03-02 09:08] LABS: Prostate Specific Antigen 5.63 ng/mL (0.10-4.00)
[2022-03-03 11:25] LABS: Parathyroid Hormone Int 115 pg/mL (15-65)
== END ==
PROVIDERS: PCP Internal Medicine; Referring Provider Internal Medicine Nephrology; Visit Provider Internal Medicine Nephrology
DX: N18.31 Chronic kidney disease, stage 3a (principal); E83.39 Other disorders of phosphorus metabolism; E11.65 Type 2 diabetes mellitus with hyperglycemia; R97.20 Elevated prostate specific antigen [PSA]
CPT/HCPCS: 36415; 80069; 82043; 82306; 82570; 83036; 83970; 84153; 85025

== ENCOUNTER → 2022-07-01 07:01 | Outpatient (CLI) | payer OTHER, SELFPAY ==
[2022-07-01 10:05] LABS: Hemoglobin A1C% w Est Avg Glu 8.6 % (4.0-6.0)
[2022-07-01 10:31] LABS: Alanine Aminotransferase 20 IU/L (<50); Albumin 3.8 g/dL (3.5-5.0); Albumin Globulin Ratio 1.4 (1.0-2.8); Alkaline Phosphatase 74 U/L (38-126); Aspartate Aminotransferase 21 IU/L (17-59); BUN Creatinine Ratio 16.9 (6-22); Bilirubin Total 0.6 mg/dL (0.2-1.3); Blood Urea Nitrogen 31 mg/dL (9-20); Calcium 8.7 mg/dL (8.4-10.2); Carbon Dioxide 26 mmol/L (22-32); Chloride 101 mmol/L (98-107); Estimated Glomerular Filt Rate 42 mL/min (>60); Globulin 2.8 g/dL (1.7-4.1); Glucose 152 mg/dL (70-100); HEMOLYSIS < 15 (0-50); Potassium 4.5 mmol/L (3.4-5.1); Sodium 138 mmol/L (137-145); Total Protein 6.6 g/dL (6.3-8.2)
== END ==
PROVIDERS: PCP Internal Medicine; Referring Provider Internal Medicine; Visit Provider Internal Medicine
DX: E11.65 Type 2 diabetes mellitus with hyperglycemia (principal); I10 Essential (primary) hypertension; N18.32 Chronic kidney disease, stage 3b
CPT/HCPCS: 36415; 80053; 83036

== ENCOUNTER → 2022-07-15 13:19 | Outpatient (CLI) | payer OTHER, SELFPAY | PROVIDERS: PCP Internal Medicine; Referring Provider Internal Medicine; Visit Provider Internal Medicine | DX: Z23 Encounter for immunization (principal) | CPT/HCPCS: 90471; 90686 ==

== ENCOUNTER → 2022-07-20 07:01 | Outpatient (CLI) | payer OTHER, SELFPAY ==
[2022-07-20 08:07] LABS: Hemoglobin A1C% w Est Avg Glu 9.3 % (4.0-6.0)
[2022-07-20 08:26] LABS: BUN Creatinine Ratio 19.8 (6-22); Blood Urea Nitrogen 33 mg/dL (9-20); Calcium 8.6 mg/dL (8.4-10.2); Carbon Dioxide 21 mmol/L (22-32); Chloride 104 mmol/L (98-107); Estimated Glomerular Filt Rate 47 mL/min (>60); Glucose 185 mg/dL (70-100); HEMOLYSIS < 15 (0-50); Phosphorous 3.7 mg/dL (2.5-4.5); Potassium 4.3 mmol/L (3.4-5.1); Sodium 136 mmol/L (137-145)
[2022-07-20 10:31] LABS: Creatinine Urine Random 87.8 mg/dL; Protein (Total) Urine Random 191 mg/dL (0-12); Protein Creatinine Ratio Urine 2.17 GRAM/24H
[2022-07-20 10:49] LABS: Microalbumi Creatinin Ratio Ur 988.6 ug/mg CR (<30); Microalbumin Urine Random 86.8 mg/dL (0-1.6)
[2022-07-21 09:42] LABS: Parathyroid Hormone Int 92 pg/mL (15-65)
== END ==
PROVIDERS: PCP Internal Medicine; Referring Provider Internal Medicine Nephrology; Visit Provider Internal Medicine Nephrology
DX: N18.32 Chronic kidney disease, stage 3b (principal); E11.22 Type 2 diabetes mellitus with diabetic chronic kidney disease; R80.9 Proteinuria, unspecified
CPT/HCPCS: 36415; 80069; 82043; 82570; 83036; 83970; 84156

== ENCOUNTER → 2022-09-28 06:54 | Outpatient (CLI) | payer OTHER, SELFPAY ==
[2022-09-28 07:34] LABS: Add Manual Diff / Slide Review NO; Basophils Absolute Auto 0 /uL (0-100); Basophils Percent Auto 0.4 % (0-2); Eosinophils Absolute Auto 300 /uL (0-450); Eosinophils Percent Auto 5.3 % (2-4); Hematocrit 41.3 % (41-53); Lymphocytes Absolute Auto 800 /uL (1100-4500); Lymphocytes Percent Auto 11.8 % (25-40); Mean Corpuscular HGB Conc 33.8 % (30-36); Mean Corpuscular Hemoglobin 29.4 PG (26-34); Mean Corpuscular Volume 86.9 fL (80-100); Monocytes Absolute Auto 500 /uL (0-900); Monocytes Percent Auto 8.5 % (3-14); Neutrophils Absolute Auto 4800 /uL (1500-7000); Platelet Count 180 X10^3/uL (150-400); Red Blood Cell Count 4.76 X10^6/uL (4.5-5.9); Red Cell Distribution Width 14.3 % (11.6-14.8); White Blood Cell Count 6.4 X10^3/uL (4.5-11.0)
[2022-09-28 07:42] LABS: Hemoglobin A1C% w Est Avg Glu 8.9 % (4.0-6.0)
[2022-09-28 08:41] LABS: Albumin 3.8 g/dL (3.5-5.0); BUN Creatinine Ratio 14.4 (6-22); Blood Urea Nitrogen 25 mg/dL (9-20); Calcium 8.7 mg/dL (8.4-10.2); Carbon Dioxide 26 mmol/L (22-32); Chloride 102 mmol/L (98-107); Estimated Glomerular Filt Rate 45 mL/min (>60); Glucose 181 mg/dL (70-100); HEMOLYSIS < 15 (0-50); Phosphorous 3.9 mg/dL (2.5-4.5); Potassium 4.9 mmol/L (3.4-5.1); Sodium 136 mmol/L (137-145)
[2022-09-28 09:05] LABS: Appearance Urine UA CLEAR; Bilirubin Urine UA NEGATIVE (NEGATIVE); Color Urine UA YELLOW; Glucose Urine UA TRACE g/dL (Negative); Ketones Urine UA NEGATIVE (NEGATIVE); Leukocyte Esterase Urine UA NEGATIVE (NEGATIVE); Nitrite Urine UA NEGATIVE (Negative); Occult Blood Urine UA NEGATIVE (Negative); Protein Urine UA 2+ (Negative); Urobilinogen Urine UA 0.2 E.U./dL (0.2)
[2022-09-28 09:11] LABS: Bacteria Urine None Seen; Culture Indicated Urine Cult Not Indicated; RBC Urine None Seen (0-5/HPF); Urine Comments Microscopic Normal; WBC Urine None Seen (0-5/HPF)
[2022-09-28 09:14] LABS: Creatinine Urine Random 102.5 mg/dL
[2022-09-28 09:20] LABS: Protein (Total) Urine Random 300 mg/dL (0-12); Protein Creatinine Ratio Urine 2.92 GRAM/24H
== END ==
PROVIDERS: PCP Internal Medicine; Referring Provider Internal Medicine Nephrology; Visit Provider Internal Medicine Nephrology
DX: R80.9 Proteinuria, unspecified (principal); N18.32 Chronic kidney disease, stage 3b; E11.65 Type 2 diabetes mellitus with hyperglycemia; I10 Essential (primary) hypertension
CPT/HCPCS: 36415; 80069; 81001; 82043; 82570; 83036; 84156; 85025

== ENCOUNTER → 2022-12-21 06:29 | Outpatient (CLI) | payer OTHER, SELFPAY ==
[2022-12-21 07:47] LABS: Appearance Urine UA CLEAR; Bilirubin Urine UA NEGATIVE (NEGATIVE); Color Urine UA YELLOW; Glucose Urine UA 3+ g/dL (Negative); Ketones Urine UA NEGATIVE (NEGATIVE); Leukocyte Esterase Urine UA NEGATIVE (NEGATIVE); Nitrite Urine UA NEGATIVE (Negative); Occult Blood Urine UA NEGATIVE (Negative); Protein Urine UA 1+ (Negative); Specific Gravity Urine UA 1.015 (1.000-1.035); Urobilinogen Urine UA 0.2 E.U./dL (0.2); pH Urine UA 5.5 (4.5-8.0)
[2022-12-21 07:49] LABS: RBC Urine None Seen (0-5/HPF); WBC Urine None Seen (0-5/HPF)
[2022-12-21 07:50] LABS: Bacteria Urine None Seen; Culture Indicated Urine Cult Not Indicated; Urine Comments Microscopic Normal
[2022-12-21 08:06] LABS: Add Manual Diff / Slide Review NO; Basophils Absolute Auto 0 /uL (0-100); Basophils Percent Auto 0.4 % (0-2); Eosinophils Absolute Auto 500 /uL (0-450); Eosinophils Percent Auto 6.9 % (2-4); Hematocrit 48.2 % (41-53); Hemoglobin 16.2 g/dL (13.5-17.5); Lymphocytes Absolute Auto 1000 /uL (1100-4500); Lymphocytes Percent Auto 15.5 % (25-40); Mean Corpuscular HGB Conc 33.7 % (30-36); Mean Corpuscular Hemoglobin 29.4 PG (26-34); Mean Corpuscular Volume 87.3 fL (80-100); Monocytes Absolute Auto 500 /uL (0-900); Monocytes Percent Auto 7.8 % (3-14); Neutrophils Absolute Auto 4500 /uL (1500-7000); Neutrophils Percent Auto 69.4 % (50-75); Platelet Count 192 X10^3/uL (150-400); Red Blood Cell Count 5.52 X10^6/uL (4.5-5.9); Red Cell Distribution Width 14.7 % (11.6-14.8); White Blood Cell Count 6.6 X10^3/uL (4.5-11.0)
[2022-12-21 08:23] LABS: Creatinine Urine Random 60.3 mg/dL; Protein (Total) Urine Random 102 mg/dL (0-12); Protein Creatinine Ratio Urine 1.69 GRAM/24H
[2022-12-21 08:29] LABS: Albumin 4.1 g/dL (3.5-5.0); BUN Creatinine Ratio 14.1 (6-22); Blood Urea Nitrogen 26 mg/dL (9-20); Carbon Dioxide 25 mmol/L (22-32); Chloride 100 mmol/L (98-107); Cholesterol 180 mg/dL (140-199); Estimated Glomerular Filt Rate 42 mL/min (>60); Glucose 176 mg/dL (70-100); HDL Cholesterol 41 mg/dL (40-60); HEMOLYSIS < 15 (0-50); LDL Cholesterol Calculated 100 mg/dL (<100); Phosphorous 4.1 mg/dL (2.5-4.5); Potassium 4.8 mmol/L (3.4-5.1); Sodium 135 mmol/L (137-145); Triglycerides 194 mg/dL (35-150)
[2022-12-21 09:09] LABS: Microalbumi Creatinin Ratio Ur 847.4 ug/mg CR (<30); Microalbumin Urine Random 51.1 mg/dL (0-1.6)
[2022-12-22 02:36] LABS: x Labcorp Estim. Avg Glu (eAG) 226 mg/dL (.); x Labcorp Hemoglobin A1c 9.5 % (4.8-5.6)
== END ==
PROVIDERS: PCP Internal Medicine; Referring Provider Internal Medicine Nephrology; Visit Provider Internal Medicine Nephrology
DX: R80.9 Proteinuria, unspecified (principal); N18.32 Chronic kidney disease, stage 3b; E11.65 Type 2 diabetes mellitus with hyperglycemia; I10 Essential (primary) hypertension
CPT/HCPCS: 36415; 80061; 80069; 81001; 82043; 82570; 83036; 84156; 85025

== ENCOUNTER → 2022-12-29 10:21 | Outpatient (CLI) | payer OTHER, SELFPAY ==
[2022-12-31 04:36] LABS: Fructosamine 309 umol/L (0-285)
== END ==
PROVIDERS: PCP Internal Medicine; Referring Provider Internal Medicine; Visit Provider Internal Medicine
DX: E11.65 Type 2 diabetes mellitus with hyperglycemia (principal)
CPT/HCPCS: 36415; 82985

== ENCOUNTER → 2023-07-05 09:07 | Outpatient (CLI) | payer OTHER, SELFPAY ==
[2023-07-05 10:37] LABS: Add Manual Diff / Slide Review NO; Basophils Absolute Auto 100 /uL (0-100); Basophils Percent Auto 0.7 % (0-2); Eosinophils Absolute Auto 200 /uL (0-450); Eosinophils Percent Auto 3.2 % (2-4); Hematocrit 47.5 % (41-53); Hemoglobin 15.8 g/dL (13.5-17.5); Lymphocytes Absolute Auto 800 /uL (1100-4500); Lymphocytes Percent Auto 10.9 % (25-40); Mean Corpuscular HGB Conc 33.2 % (30-36); Mean Corpuscular Hemoglobin 29.2 PG (26-34); Mean Corpuscular Volume 87.9 fL (80-100); Monocytes Absolute Auto 500 /uL (0-900); Monocytes Percent Auto 7.3 % (3-14); Neutrophils Absolute Auto 5800 /uL (1500-7000); Neutrophils Percent Auto 77.9 % (50-75); Platelet Count 176 X10^3/uL (150-400); Red Cell Distribution Width 14.1 % (11.6-14.8); White Blood Cell Count 7.4 X10^3/uL (4.5-11.0)
[2023-07-05 11:04] LABS: BUN Creatinine Ratio 22.2 (6-22); Blood Urea Nitrogen 36 mg/dL (9-20); Carbon Dioxide 23 mmol/L (22-32); Chloride 100 mmol/L (98-107); Estimated Glomerular Filt Rate 49 mL/min (>60); Glucose 271 mg/dL (70-100); HEMOLYSIS < 15 (0-50); Potassium 4.6 mmol/L (3.4-5.1); Sodium 133 mmol/L (137-145)
[2023-07-05 11:27] LABS: Creatinine Urine Random 76.9 mg/dL; Protein (Total) Urine Random 141 mg/dL (0-12); Protein Creatinine Ratio Urine 1.83 GRAM/24H
[2023-07-05 11:59] LABS: Vitamin D 25 Hydroxy (D3) 35.5 ng/mL (30.0-100.0)
[2023-07-07 10:46] LABS: Parathyroid Hormone Int 81 pg/mL (15-65)
== END ==
PROVIDERS: PCP Internal Medicine; Referring Provider Internal Medicine Nephrology; Visit Provider Internal Medicine Nephrology
DX: N18.31 Chronic kidney disease, stage 3a (principal)
CPT/HCPCS: 36415; 80069; 82306; 82570; 83970; 84156; 85025

== ENCOUNTER → 2023-08-09 14:34 | Outpatient (CLI) | payer OTHER, SELFPAY | PROVIDERS: PCP Internal Medicine; Referring Provider Family Medicine; Visit Provider Family Medicine | DX: Z23 Encounter for immunization (principal) | CPT/HCPCS: 90471; 90686 ==

== ENCOUNTER → 2024-01-31 07:03 | Outpatient (CLI) | payer OTHER, SELFPAY ==
[2024-01-31 07:55] LABS: Add Manual Diff / Slide Review NO; Basophils Absolute Auto 0 /uL (0-100); Basophils Percent Auto 0.4 % (0-2); Eosinophils Absolute Auto 400 /uL (0-450); Eosinophils Percent Auto 5.9 % (2-4); Hematocrit 48.4 % (41-53); Hemoglobin 16.5 g/dL (13.5-17.5); Lymphocytes Absolute Auto 1000 /uL (1100-4500); Lymphocytes Percent Auto 13.2 % (25-40); Mean Corpuscular HGB Conc 34.1 % (30-36); Mean Corpuscular Hemoglobin 29.7 PG (26-34); Mean Corpuscular Volume 87.2 fL (80-100); Monocytes Absolute Auto 600 /uL (0-900); Monocytes Percent Auto 8.5 % (3-14); Neutrophils Absolute Auto 5400 /uL (1500-7000); Platelet Count 187 X10^3/uL (150-400); Red Blood Cell Count 5.55 X10^6/uL (4.5-5.9); Red Cell Distribution Width 13.4 % (11.6-14.8); White Blood Cell Count 7.5 X10^3/uL (4.5-11.0)
[2024-01-31 08:20] LABS: Albumin 4.2 g/dL (3.5-5.0); BUN Creatinine Ratio 20.2 (6-22); Blood Urea Nitrogen 36 mg/dL (9-20); Calcium 8.7 mg/dL (8.4-10.2); Carbon Dioxide 23 mmol/L (22-32); Chloride 102 mmol/L (98-107); Estimated Glomerular Filt Rate 43 mL/min (>60); Glucose 289 mg/dL (70-100); HEMOLYSIS < 15 (0-50); Phosphorous 4.3 mg/dL (2.5-4.5); Potassium 4.8 mmol/L (3.4-5.1); Sodium 133 mmol/L (137-145)
[2024-01-31 08:51] LABS: Vitamin D 25 Hydroxy (D3) 55.4 ng/mL (30.0-100.0)
[2024-01-31 09:42] LABS: Creatinine Urine Random 75.31 mg/dL; Protein (Total) Urine Random 87 mg/dL (0-12); Protein Creatinine Ratio Urine 1.15 GRAM/24H
[2024-01-31 09:50] LABS: Cholesterol 203 mg/dL (140-199); HDL Cholesterol 39 mg/dL (40-60); LDL Cholesterol Calculated 105 mg/dL (<100); Triglycerides 297 mg/dL (35-150)
[2024-02-02 07:44] LABS: Parathyroid Hormone Int 70 pg/mL (15-65)
== END ==
PROVIDERS: Internal Medicine Cardiovascular Disease; PCP Internal Medicine; Referring Provider Internal Medicine Nephrology; Visit Provider Internal Medicine Nephrology
DX: N18.31 Chronic kidney disease, stage 3a (principal)
CPT/HCPCS: 36415; 80061; 80069; 82306; 82570; 83970; 84156; 85025

== ENCOUNTER → 2024-02-26 07:00 | Outpatient (CLI) | payer OTHER, SELFPAY ==
[2024-02-26 09:20] LABS: Appearance Urine UA CLEAR; Bilirubin Urine UA NEGATIVE (NEGATIVE); Color Urine UA YELLOW; Glucose Urine UA 3+ g/dL (Negative); Ketones Urine UA NEGATIVE (NEGATIVE); Leukocyte Esterase Urine UA NEGATIVE (NEGATIVE); Nitrite Urine UA NEGATIVE (Negative); Occult Blood Urine UA NEGATIVE (Negative); Protein Urine UA 2+ (Negative); Urobilinogen Urine UA 0.2 E.U./dL (0.2)
[2024-02-26 09:35] LABS: Bacteria Urine None Seen; Culture Indicated Urine Cult Not Indicated; Hematocrit 46.4 % (41-53); Hemoglobin 15.6 g/dL (13.5-17.5); Mean Corpuscular HGB Conc 33.6 % (30-36); Mean Corpuscular Hemoglobin 29.8 PG (26-34); Mean Corpuscular Volume 88.8 fL (80-100); Platelet Count 162 X10^3/uL (150-400); RBC Urine 1-5/HPF (0-5/HPF); Red Blood Cell Count 5.23 X10^6/uL (4.5-5.9); Red Cell Distribution Width 13.7 % (11.6-14.8); Squamous Epithelial Cell Urine 1-5 /HPF (0-5/HPF); Transitional Epi Cells Urine None Seen (0-5/HPF); Urine Volume 10mL (spun); WBC Urine None Seen (0-5/HPF); White Blood Cell Count 6.1 X10^3/uL (4.5-11.0)
[2024-02-26 09:52] LABS: Creatinine Urine Random 97.27 mg/dL
[2024-02-26 09:53] LABS: HEMOLYSIS < 15 (0-50)
[2024-02-26 10:31] LABS: Ferritin 49 ng/mL (18-464)
[2024-02-26 10:40] LABS: Microalbumin Urine Random > 114.0 mg/dL (0-1.6); Protein (Total) Urine Random 352 mg/dL (0-12); Protein Creatinine Ratio Urine 3.61 GRAM/24H
[2024-02-26 11:00] LABS: Vitamin D 25 Hydroxy (D3) 52.5 ng/mL (30.0-100.0)
[2024-02-26 11:05] LABS: Albumin 4.2 g/dL (3.5-5.0); BUN Creatinine Ratio 14.2 (6-22); Blood Urea Nitrogen 24 mg/dL (9-20); Calcium 8.4 mg/dL (8.4-10.2); Carbon Dioxide 26 mmol/L (22-32); Chloride 103 mmol/L (98-107); Estimated Glomerular Filt Rate 46 mL/min (>60); Glucose 267 mg/dL (70-100); Phosphorous 3.3 mg/dL (2.5-4.5); Potassium 5.2 mmol/L (3.4-5.1); Sodium 135 mmol/L (137-145)
[2024-02-26 11:19] LABS: HEMOLYSIS < 15 (0-50); Total Iron Binding Capacity 259 ug/dL (261-462); Transferrin 192 mg/dL (206-381)
[2024-02-26 16:46] LABS: Iron 93 ug/dL (49-181); Percent Iron Saturation 36 % (20-50)
== END ==
PROVIDERS: PCP Internal Medicine; Referring Provider Internal Medicine Nephrology; Visit Provider Internal Medicine Nephrology
DX: E11.22 Type 2 diabetes mellitus with diabetic chronic kidney disease (principal); I12.9 Hypertensive chronic kidney disease with stage 1 through stage 4 chronic kidney disease, or unspecified chronic kidney disease; N18.32 Chronic kidney disease, stage 3b; N25.81 Secondary hyperparathyroidism of renal origin; I48.0 Paroxysmal atrial fibrillation; E78.5 Hyperlipidemia, unspecified
CPT/HCPCS: 36415; 80069; 81001; 82043; 82306; 82570; 82728; 83540; 83550; 83970; 84156; 85027

== ENCOUNTER → 2024-03-19 10:16 | Outpatient (CLI) | payer OTHER, SELFPAY ==
--- NOTE | 2024-03-19 10:17 | DI.ECHO.S_ITS ---
[facility] +---------+ [facility] : : [address] [address] : : [id number] : : Phone: [phone] Echocardiogram Report + + :Name: LORE SOW Study Date: 03/19/2024 Height: 73 in : :[facility] ReadingLocation: Weight: 283 lb : : Gender: Male BSA: 2.5 m2 : :: 1965 Age: 58 yrs BP: 162/105 mmHg: :Reason For Study: THORACIC AORTIC ECTASIA : :Ordering Physician: UBALDO, : :BO[place]ON Performed By: Marvin Saba : :Referring: BOSTON CONNER : + + Interpretation Summary The left ventricle is normal in size. The left ventricular ejection fraction is normal. The ejection fraction is estimated to be 60-65%. There has been no significant change in LVEF since the previous exam. Diastolic parameters suggest a pseudonormalization pattern, consistent with probable elevated filling pressures. This is unchanged from the previous study. The right ventricle is normal size. The right ventricular systolic function is normal. There is mild aortic regurgitation. Previously trivial AI. There is trace tricuspid regurgitation. Right ventricular systolic pressure is estimated to be 42 mmHg plus the clinically estimated CVP which cannot be estimated on this exam. Previously 38 mmHg. The ascending aorta is mildly enlarged. 4.1 cm in diameter. Unchanged from the previous study. BP: 162/105 mmHg Procedure: A two-dimensional transthoracic echocardiogram with color flow and Doppler was performed. The study quality was technically adequate. Comparison is made with the echocardiogram of 10/25/2021. The patient was in sinus rhythm with heart rates between 62-72 bpm during the exam. Left Ventricle: Left ventricular wall thickness is mildly increased. The left ventricle is normal in size. There is no thrombus. The ejection fraction is estimated to be 60-65%. The left ventricular ejection fraction is normal. There has been no significant change since the previous exam. There are no focal wall motion abnormalities. Diastolic parameters suggest a pseudonormalization pattern, consistent with probable elevated filling pressures. There has been no significant change since the previous study. Right Ventricle: The right ventricle is normal size. The right ventricular systolic function is normal. Atria: The left atrial size is normal. There has been no significant change since the previous study. Right atrial size is normal. The interatrial septum grossly appears intact with no obvious evidence for an atrial septal defect. Mitral Valve: The mitral valve leaflets are slightly calcified. There is no mitral valve stenosis. There is trace mitral regurgitation. Aortic Valve: The aortic valve is trileaflet. The aortic valve opens well. There is no aortic valve stenosis. There is mild aortic regurgitation. Tricuspid Valve: The tricuspid valve is normal. There is no tricuspid stenosis. There is trace tricuspid regurgitation. Pulmonary artery pressures cannot be estimated because of the lack of a measurable TR jet velocity. Right ventricular systolic pressure is estimated to be 42 mmHg plus the clinically estimated CVP which cannot be estimated on this exam. Pulmonic Valve: The pulmonic valve is not well visualized. There is no pulmonic valvular stenosis. There is no pulmonic valvular regurgitation. Great Vessels: The aortic root is normal size. The ascending aorta is mildly enlarged. The inferior vena cava was not visualized. Pericardium/ Pleura There is no pericardial effusion. There is no pleural effusion. MMode/2D Measurements & Calculations LVIDd: 5.1 cm LVOT diam: 2.7 cm LVIDs: 3.5 cm Ao root diam: 3.6 cm FS: 32.2 % asc Aorta Diam: 4.1 cm IVSd: 1.4 cm LVPWd: 1.2 cm LV fu. diameter/BSA (cm/m^2): 2.1 LV sys. diameter/BSA (cm/m^2): 1.4 LA A2 area: 23.6 cm2 RA long axis: 5.6 cm LA A4 area: 22.9 cm2 RA area: 18.0 cm2 LA length (vol): 5.9 cm RA vol: 49.3 ml LA vol: 77.0 ml RA : 19.8 ml/m2 LA vol index: 30.9 ml/m2 RVD1 (basal): 2.9 cm RVD2 (mid): 3.1 cm TAPSE: 2.2 cm Doppler Measurements & Calculations Ao V2 max: 161.9 cm/sec LVOT Max Jam: 111.2 cm/sec Ao V2 mean: 123.4 cm/sec LV V1 max P.9 mmHg Ao max P.5 mmHg LV V1 VTI: 29.1 cm Ao mean P.5 mmHg NOHEMI(I,D): 4.3 cm2 Ao V2 VTI: 37.6 cm NOHEMI(V,D): 3.8 cm2 sev ratio: 0.78 NOHEMI indexed to BSA (cm^2/m^2): 1.7 MV E max jam: 97.9 cm/sec TR max jam: 323.1 cm/sec MV A max jam: 81.6 cm/sec TR max P.8 mmHg MV E/A: 1.2 PA V2 max: 115.7 cm/sec Med Peak E' Jam: 4.3 cm/sec PA V2 mean: 75.5 cm/sec E/E' med: 22.6 PA mean P.6 mmHg Lat Peak E' Jam: 5.5 cm/sec PA pr(Accel): 31.0 mmHg E/E' lat: 18.0 E/e' average: 20.3 MV dec time: 0.22 sec SV(LVOT): 162.6 ml Reading Physician:05:07 PM
== END ==
PROVIDERS: PCP Internal Medicine; Referring Provider Internal Medicine Cardiovascular Disease; Visit Provider Internal Medicine Cardiovascular Disease
DX: I77.810 Thoracic aortic ectasia (principal); I35.1 Nonrheumatic aortic (valve) insufficiency; I77.89 Other specified disorders of arteries and arterioles
CPT/HCPCS: 93306

== ENCOUNTER → 2024-04-24 09:39 | Outpatient (CLI) | payer OTHER, SELFPAY ==
[2024-04-27 07:36] LABS: PSA, Total 5.3 ng/mL (0.0-4.0)
== END ==
PROVIDERS: PCP Internal Medicine; Referring Provider Internal Medicine; Visit Provider Internal Medicine
DX: R97.20 Elevated prostate specific antigen [PSA] (principal)
CPT/HCPCS: 36415; 84153; 84154

== ENCOUNTER → 2024-07-16 11:06 | Outpatient (CLI) | payer OTHER, SELFPAY | PROVIDERS: PCP Internal Medicine; Referring Provider Internal Medicine; Visit Provider Internal Medicine | DX: Z23 Encounter for immunization (principal) | CPT/HCPCS: 90471; 90656 ==

== ENCOUNTER → 2024-10-08 15:15 | Outpatient (CLI) | payer OTHER, SELFPAY ==
--- NOTE | 2024-10-08 15:16 | DI.ECHO.S_ITS ---
[facility] +---------+ [facility] : : [address] : [place] [address] : : [id number] : : Phone: [phone] Echocardiogram Report + + :Name: LORE SOW Study Date: 10/08/2024 Height: 73 in : :Hospital ReadingLocation: Weight: 278 lb : : Gender: Male BSA: 2.5 m2 : :: 1965 Age: 59 yrs BP: 171/99 mmHg: :Reason For Study: CHEST PAIN : :Ordering Physician: EMILEE, : :ADÁN, Performed By: Anyi Cao : :Referring: ADÁN HEBERT : + + Interpretation Summary The left ventricle is normal in size. There is mild concentric left ventricular hypertrophy. The left ventricular ejection fraction is normal. The ejection fraction is estimated to be 65-70%. Diastolic parameters suggest a pseudonormalization pattern, consistent with probable elevated filling pressures. The right ventricle is normal in size and function. There is mild aortic regurgitation. Compared to the prior echo study, there has been no change in the severity of aortic regurgitation. The right ventricular systolic pressure is estimated to be at least 33 mmHg based on an estimated right atrial pressure of 3 mm Hg. The ascending aorta is mildly enlarged. 4.1 cm in diameter. Unchanged from the previous study. BP: 171/99 mmHg Procedure: A two-dimensional transthoracic echocardiogram with color flow and Doppler was performed. The study quality was technically adequate. Comparison is made with the echocardiogram of 03/19/2024. A contrast injection of Definity was performed to improve assessment of LV function. The patient was in sinus rhythm with heart rates between 62-70 bpm during the exam. Left Ventricle: The left ventricle is normal in size. There is mild concentric left ventricular hypertrophy. Proximal septal thickening is noted. There is no echo evidence for significant left ventricular outflow tract obstruction. There is no thrombus. The ejection fraction is estimated to be 65-70%. The left ventricular ejection fraction is normal. There are no focal wall motion abnormalities. Diastolic parameters suggest a pseudonormalization pattern, consistent with probable elevated filling pressures. Right Ventricle: The right ventricle is normal in size and function. The right ventricular systolic function is normal. Atria: The left atrial size is normal. There has been no significant change since the previous study. Right atrial size is normal. There is no Doppler evidence for an interatrial shunt. Mitral Valve: The mitral valve leaflets are slightly calcified. The mitral valve leaflets appear to open well. There is no mitral valve stenosis. There is trace mitral regurgitation. Aortic Valve: The aortic valve is trileaflet. The aortic valve opens well. The aortic valve is slightly calcified. The peak aortic velocity is 1.8 m/sec. The aortic valve mean gradient is 7 mmHg. The calculated aortic valve area is 3.3 cm2. There is no aortic valve stenosis. There is mild aortic regurgitation. Compared to the prior echo study, there has been no change in the severity of aortic regurgitation. Tricuspid Valve: The tricuspid valve leaflets are thin and pliable. There is trace tricuspid regurgitation. The right ventricular systolic pressure is estimated to be at least 33 mmHg based on an estimated right atrial pressure of 3 mm Hg. Pulmonic Valve: The pulmonic valve leaflets are thin and pliable; valve motion is normal. There is a trace or physiologic amount of pulmonic regurgitation. Great Vessels: The aortic root is normal size. The ascending aorta is mildly enlarged. The IVC is of normal diameter and collapses greater than 50% with a sniff. This suggests a low right atrial pressure of 3 mm Hg. Pericardium/ Pleura There is no pericardial effusion. There is no pleural effusion. MMode/2D Measurements & Calculations LVIDd: 5.0 cm LVOT diam: 2.7 cm LVIDs: 3.4 cm Ao root diam: 3.6 cm FS: 32.0 % asc Aorta Diam: 4.1 cm IVSd: 1.2 cm Ao Arch Diam (Prox Trans): 3.4 cm LVPWd: 1.2 cm LV fu. diameter/BSA (cm/m^2): 2.0 LV sys. diameter/BSA (cm/m^2): 1.4 LA A2 area: 22.6 cm2 RA long axis: 4.5 cm LA A4 area: 20.7 cm2 RA area: 13.6 cm2 LA length (vol): 6.0 cm RA vol: 35.1 ml LA vol: 66.7 ml RA : 14.2 ml/m2 LA vol index: 26.9 ml/m2 IVC diam: 1.4 cm RVD1 (basal): 3.8 cm RVD2 (mid): 3.9 cm TAPSE: 2.1 cm Doppler Measurements & Calculations Ao V2 max: 177.2 cm/sec LVOT Max Jam: 102.7 cm/sec Ao V2 mean: 120.6 cm/sec LV V1 max P.2 mmHg Ao max P.6 mmHg LV V1 VTI: 24.4 cm Ao mean P.8 mmHg NOHEMI(I,D): 3.9 cm2 Ao V2 VTI: 35.8 cm NOHEMI(V,D): 3.3 cm2 sev ratio: 0.68 NOHEMI indexed to BSA (cm^2/m^2): 1.6 AI P1/2t: 789.7 msec AI dec slope: 158.1 cm/sec2 MV E max ajm: 99.5 cm/sec TR max jam: 276.2 cm/sec MV A max jam: 79.6 cm/sec TR max P.5 mmHg MV E/A: 1.3 PA V2 max: 112.5 cm/sec Med Peak E' Jam: 6.1 cm/sec PA V2 mean: 78.5 cm/sec E/E' med: 16.3 PA mean P.7 mmHg Lat Peak E' Jam: 10.9 cm/sec PA pr(Accel): 29.3 mmHg E/E' lat: 9.1 E/e' average: 12.7 MV dec time: 0.24 sec MVA(VTI): 3.9 cm2 MV V2 mean: 61.9 cm/sec SV(LVOT): 140.7 ml MV mean P.7 mmHg MV V2 VTI: 36.4 cm Reading Physician:12:43 PM
== END ==
PROVIDERS: PCP Internal Medicine; Referring Provider Nurse Practitioner Acute Care; Visit Provider Nurse Practitioner Acute Care
DX: I35.1 Nonrheumatic aortic (valve) insufficiency (principal); I25.9 Chronic ischemic heart disease, unspecified; I77.89 Other specified disorders of arteries and arterioles
CPT/HCPCS: 78452; 93017; 93306; A9502; J2785; Q9957

== ENCOUNTER → 2024-10-16 08:58 | Outpatient (CLI) | payer OTHER, SELFPAY ==
[2024-10-16 10:18] LABS: Blood Urea Nitrogen 20 mg/dL (9-20); Calcium 9.2 mg/dL (8.4-10.2); Carbon Dioxide 24 mmol/L (22-32); Chloride 101 mmol/L (98-107); Estimated Glomerular Filt Rate 47 mL/min (>60); Glucose 294 mg/dL (80-110); HEMOLYSIS < 15 (0-50); Potassium 4.1 mmol/L (3.4-5.1); Sodium 134 mmol/L (137-145)
[2024-10-17 07:07] LABS: PSA Free % 35.5 % (.); PSA, Total 7.1 ng/mL (0.0-4.0)
== END ==
PROVIDERS: PCP Internal Medicine; Referring Provider Internal Medicine Cardiovascular Disease; Visit Provider Internal Medicine Cardiovascular Disease
DX: I10 Essential (primary) hypertension (principal); R97.20 Elevated prostate specific antigen [PSA]
CPT/HCPCS: 36415; 80048; 84153; 84154

== ENCOUNTER 2024-11-04 11:12 | Emergency (ER) | payer OTHER, SELFPAY ==
[2024-11-04] VITALS (7 sets, daily range): BP systolic 142–164; BP diastolic 75–88; PULSE 66–80; RESP 11–18; O2SAT 95–100; BMI 36.6
--- NOTE | 2024-11-04 11:35 | DI.CT.S_ITS ---
PROCEDURE: CT ANGIO HEAD AND NECK INDICATIONS: Dizziness TECHNIQUE: After the administration of intravenous contrast, 1 mm thick sections acquired from the aortic arch through the [place]. 3-dimensional wdexyhv-ddzzxzdak-jmgfarsesy (MIP) and/or volume rendering reformats were acquired of the central intracranial vasculature and neck separately. For radiation dose reduction, the following was used: automated exposure control, adjustment of mA and/or kV according to patient size. COMPARISON: None. FINDINGS: Image quality: Diagnostic. BRAIN: Please refer to same day CT of the head. HEAD CT ANGIOGRAPHY: Anterior circulation: Intracranial internal carotid arteries are normal in size and flow. The flow within the paired anterior cerebral arteries is normal and symmetric. The flow within the middle cerebral arteries is normal and symmetric. The anterior communicating artery is seen. No aneurysms are seen. Posterior circulation: Visualized portions of the vertebral arteries demonstrate normal caliber, and join to form a normal appearing basilar artery. Flow within the posterior cerebral arteries is normal and symmetric. No aneurysms are seen. NECK CT ANGIOGRAPHY: Carotid system: The great vessels demonstrate a conventional anatomy as they arise from the aortic arch. The origins of the common carotid arteries appear patent. The common carotid arteries demonstrate normal caliber and courses. The bifurcation regions are both widely patent. The internal carotid arteries demonstrate normal calibers and tortuous courses. Posterior circulation: The origins of the vertebral arteries both appear widely patent. The more superior extracranial portions of both vertebral arteries also demonstrate normal courses and calibers. They join to form a normal appearing basilar artery. Soft tissues: Left intraparotid soft tissue density measuring 7 mm in short axis. Bones: No suspicious bony lesions. Visualized cervical spine appears normally aligned. Degenerative changes of the spine. IMPRESSION: No significant intracranial arterial abnormality is seen. No significant abnormality is seen within the arteries of the neck. Left intraparotid soft tissue density measuring 7 mm in short axis, may represent a lymph node versus primary parotid neoplasm. Any quantitative measurements of stenosis were performed using NASCET criteria. Dictated by: Pasquale Wei M.D. on 11/04/2024 at 12:41 Approved by: Pasquale Wei M.D. on 11/04/2024 at 12:47
--- NOTE | 2024-11-04 11:37 | ED.DIZZY ---
HPI - Dizziness General Chief Complaint: Dizziness Stated Complaint: dizziness, vomiting t-7 Time Seen by Provider: 11/04/24 11:20 History of Present Illness HPI Narrative: Patient here for intractable daily dizziness for the past 1 week. At times it feels like he is spinning and sometimes items around him are spinning. Has to hold onto things when it gets really bad. He has had nausea and vomiting as well. Patient has had stroke in the past with dizziness. Patient just had LAD stent placed at [facility] 3 weeks ago. Denies any chest pain. No black or bloody stools. Denies any palpitations. Dizziness is worse with movement and eye movement. No prior history of vertigo. No history of brain aneurysm. No vision changes. Fast exam is negative. No slurred speech or facial droop. No limb numbness tingling or weakness. Patient did see primary care, Dr. Nick for this and was discussed and thought may be sinus or ear related. However treatments followed and no improvement.. No meclizine was started. Related Data Home Medications Medication Instructions Recorded Confirmed clonidine HCl 0.1 mg tablet 0.1 mg PO BEDTIME 07/19/19 10/21/24 amlodipine 5 mg tablet 5 mg PO DAILY 06/25/20 10/21/24 atorvastatin 10 mg tablet 10 mg PO DAILY 06/25/20 10/21/24 dabigatran etexilate 150 mg capsule 150 mg PO BID 06/25/20 10/21/24 hydralazine 50 mg tablet 50 mg PO BID 06/25/20 10/21/24 carvedilol 25 mg tablet 25 mg PO BID 08/21/20 10/21/24 empagliflozin 10 mg tablet 10 mg PO DAILY 07/04/22 10/21/24 (Jardiance) ticagrelor 90 mg tablet (Brilinta) 90 mg PO DAILY 10/21/24 10/21/24 Previous Rx's Medication Instructions Recorded losartan 100 mg tablet 100 mg PO DAILY #90 tabs 03/19/21 glipizide 10 mg tablet 10 mg PO BID #180 tabs 10/21/24 semaglutide 0.25 mg or 0.5 mg (2 0.25 mg (0.368 mL) SUBCUT QWEEK #3 10/21/24 mg/3 mL) subcutaneous pen injector mL (Ozempic) semaglutide 0.25 mg or 0.5 mg (2 0.5 mg (0.736 mL) SUBCUT QWEEK #3 10/21/24 mg/3 mL) subcutaneous pen injector mL (Ozempic) blood-glucose meter,continuous #1 ea 11/01/24 (Dexcom G7 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 HEENT: Negative sinus pain, ear pain, sore throat RESPIRATORY: Negative dyspnea, cough CARDIOVASCULAR: Negative chest pain, palpitations GASTROINTESTINAL: Negative vomiting, positive nausea, negative abdominal pain : Negative dysuria, frequency, hematuria MUSCULOSKELETAL: Negative muscle or bony pain SKIN: Negative rash, skin lesions NEUROLOGIC: Negative weakness, numbness, positive dizziness ROS Unobtainable: All systems reviewed & are unremarkable except as noted in HPI and below Patient History Medical History (Updated 11/04/24 @ 14:18 by Hal Guzman MD) Coronary artery disease (~10/2024) Elevated PSA Allergies (~1979) Stroke (~2012) Kidney disease (~2004) Rheumatoid arthritis (~2009) Personal history of stroke with current residual effects (~2012) Chronic renal failure, stage 3 (moderate) Essential hypertension (~1991) Heart failure with preserved ejection fraction Type 2 diabetes mellitus with hyperglycemia (~2001) Rotator cuff impingement syndrome of right shoulder (~2014) Surgical History (Updated 10/21/24 @ 10:53 by Rodo Nick MD) S/P coronary artery stent placement (~10/2024) Anesthesia History of prior ablation treatment (~2014) History of radiofrequency ablation (RFA) procedure for cardiac arrhythmia S/P UPPP (uvulopalatopharyngoplasty) (~1997) S/P cholecystectomy (~2016) Family History (Updated 08/19/20 @ 19:35 by Berta Briceño) Grandfather Hypertension Heart disease Grandmother Heart disease Hypertension Grandfather Cancer Heart disease Grandmother Cancer Heart disease Hypertension Stroke Social History Smoking Status: Never smoker Smoking Status: Never smoker Exam Narrative Exam Narrative: GENERAL: in no distress, not toxic not dyspneic HEAD: Normocephalic. EYES: Pupils equal round, there is horizontal nystagmus. ENT: Mucous membranes moist. NECK: Trachea midline. CARDIOVASCULAR: Regular rate and rhythm RESPIRATORY: Clear to auscultation. Breath sounds equal bilaterally. No wheezes, rales, or rhonchi. GASTROINTESTINAL: Abdomen soft, non-tender EXTREMITIES: No gross deformities. BACK: No flank tenderness. NEURO: AOx4. Clear speech, fast exam is negative. 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 Elevate each leg without drift. Kvgbsv-ix-yrzm intact bilaterally. SKIN: Warm and dry PSYCH: Not anxious, is cooperative Initial Vital Signs Initial Vital Signs: Vital Signs Pulse Rate 73 11/04/24 11:16 Pulse Oximetry 97 11/04/24 11:16 Scores NIH Stroke Scale Level of Conciousness: Alert, keenly responsive Ask month/age: Answers both questions correctly. Open/close eyes, close hand: Performs both tasks correctly Best gaze horizontal: Normal Visual eduardo: No visual loss Facial palsy: Normal symetrical movement Left arm drift: No drift for full 10 sec Right arm drift: No drift for full 10 sec Left leg drift: No drift for full 5 sec Right leg drift: No drift for full 5 sec Limb ataxia: Absent Sensory on face/arms/legs: Normal, no sensory loss Best language: No aphasia, normal Dysarthria: Normal Extinction or inattention: No abnormality Total NIH Stroke scale score: 0 Course Orders Ordered: Discontinued Medications Sodium Chloride (Normal Saline 0.9%) 1,000 mls @ 1,000 mls/hr IV BOLUS ONE Stop: 11/04/24 12:34 Last Infusion: 11/04/24 13:06 Dose: Infused Documented By: Admin: 11/04/24 11:49 Dose: 1,000 mls/hr Documented By: GERONIMO Meclizine HCl (Meclizine Hcl 12.5 Mg Tablet) 50 mg PO NOW ONE Stop: 11/04/24 11:36 Last Admin: 11/04/24 11:49 Dose: 50 mg Documented By: GERONIMO Ondansetron HCl (Ondansetron 4 Mg/2 Ml Inj) 4 mg IV NOW ONE Stop: 11/04/24 11:36 Last Admin: 11/04/24 11:49 Dose: 4 mg Documented By: GERONIMO Vital Signs Vital signs: Vital Signs - 8 hr 11/04/24 11:16 11/04/24 11:19 11/04/24 11:53 Pulse Rate 73 76 78 Respiratory Rate 18 Blood Pressure 164/88 H Pulse Oximetry 97 97 97 Oxygen Delivery Method Room Air 11/04/24 12:00 11/04/24 12:00 11/04/24 12:30 Pulse Rate 74 Respiratory Rate 11 L Blood Pressure 143/75 H 142/77 H Pulse Oximetry 95 Oxygen Delivery Method 11/04/24 12:30 11/04/24 13:00 11/04/24 13:00 Pulse Rate 66 66 Respiratory Rate 15 16 Blood Pressure 145/82 H Pulse Oximetry 97 97 Oxygen Delivery Method Room Air MDM - Dizziness Lab Data 11/04/24 11:27 11/04/24 11:27 Labs: Lab Results 11/04/24 Range/Units 11:27 WBC 8.3 (4.5-11.0) X10^3/uL RBC 5.35 (4.5-5.9) X10^6/uL Hgb 15.9 (13.5-17.5) g/dL Hct 47.3 (41-53) % MCV 88.4 (80-100) fL MCH 29.8 (26-34) PG MCHC 33.7 (30-36) % RDW 13.3 (11.6-14.8) % Plt Count 205 (150-400) X10^3/uL Neut % (Auto) 83.5 H (50-75) % Lymph % (Auto) 8.6 L (25-40) % Crowley % (Auto) 5.9 (3-14) % Eos % (Auto) 1.6 L (2-4) % Baso % (Auto) 0.4 (0-2) % Neut # (Auto) 7000 (4223-8135) /uL Lymph # (Auto) 700 L (7325-8558) /uL Crowley # (Auto) 500 (0-900) /uL Eos # (Auto) 100 (0-450) /uL Baso # (Auto) 0 (0-100) /uL Sodium 133 L (137-145) mmol/L Potassium 5.0 (3.4-5.1) mmol/L Chloride 101 (98-107) mmol/L Carbon Dioxide 19 L (22-32) mmol/L BUN 27 H (9-20) mg/dL Creatinine 2.03 H (0.66-1.25) mg/dL Estimated GFR 37 L (>60) mL/min BUN/Creatinine Ratio 13.3 (6-22) Glucose 371 H (80-110) mg/dL Calcium 9.0 (8.4-10.2) mg/dL Total Bilirubin 1.1 (0.2-1.3) mg/dL AST 29 (17-59) IU/L ALT 27 (<50) IU/L Alkaline Phosphatase 109 (38-126) U/L Troponin I < 0.012 (0.01-0.034) ng/mL Total Protein 7.4 (6.3-8.2) g/dL Albumin 4.4 (3.5-5.0) g/dL Globulin 3.0 (1.7-4.1) g/dL Albumin/Globulin Ratio 1.5 (1.0-2.8) Imaging Data CT scan - head: Radiologist's Impression: [place] [address] CT Scan Report Signed Patient: Chandni Guzmán MR#: [id number] : 1965 Acct:[id number] Age/Sex: 59 / M Date of Service: 11/04/24 Loc: ED Accession Number: [id number] Procedure: CT head/brain wo con Ordering Provider: Hal Guzman MD PROCEDURE: CT HEAD/BRAIN WO CON INDICATIONS: dizzy TECHNIQUE: Noncontrast 4.5 mm thick angled axial sections acquired from the foramen magnum to the vertex, with coronal and sagittal reformats. For radiation dose reduction, the following was used: automated exposure control, adjustment of mA and/or kV according to patient size. COMPARISON: None. FINDINGS: Image quality: Diagnostic. CSF spaces: Basal cisterns are patent. No extra-axial fluid collections. The ventricles are symmetric in size and shape. Brain: No intracranial bleeds or masses. There is cerebral volume loss for age, with resultant ventricular and sulcal prominence. There are periventricular and deep white matter chronic small vessel ischemic changes. There is intracranial internal carotid artery atherosclerosis. Skull and face: Calvarium and visualized facial bones appear intact, without suspicious lesions. Sinuses: Visualized sinuses and mastoids are clear. IMPRESSION: No acute intracranial pathology. Dictated by: Pasquale Wei M.D. on 11/04/2024 at 12:39 Approved by: Pasquale Wei M.D. on 11/04/2024 at 12:40 CTA - brain/neck: Radiologist's Impression: [place] [address] CT Scan Report Signed Patient: Chandni Guzmán MR#: [id number] : 1965 Acct:[id number] Age/Sex: 59 / M Date of Service: 11/04/24 Loc: ED Accession Number: [id number] Procedure: CT angio head and neck Ordering Provider: Hal Guzman MD PROCEDURE: CT ANGIO HEAD AND NECK INDICATIONS: Dizziness TECHNIQUE: After the administration of intravenous contrast, 1 mm thick sections acquired from the aortic arch through the [place]. 3-dimensional rawjdez-uisomdqdm-iywbraxawm (MIP) and/or volume rendering reformats were acquired of the central intracranial vasculature and neck separately. For radiation dose reduction, the following was used: automated exposure control, adjustment of mA and/or kV according to patient size. COMPARISON: None. FINDINGS: Image quality: Diagnostic. BRAIN: Please refer to same day CT of the head. HEAD CT ANGIOGRAPHY: Anterior circulation: Intracranial internal carotid arteries are normal in size and flow. The flow within the paired anterior cerebral arteries is normal and symmetric. The flow within the middle cerebral arteries is normal and symmetric. The anterior communicating artery is seen. No aneurysms are seen. Posterior circulation: Visualized portions of the vertebral arteries demonstrate normal caliber, and join to form a normal appearing basilar artery. Flow within the posterior cerebral arteries is normal and symmetric. No aneurysms are seen. NECK CT ANGIOGRAPHY: Carotid system: The great vessels demonstrate a conventional anatomy as they arise from the aortic arch. The origins of the common carotid arteries appear patent. The common carotid arteries demonstrate normal caliber and courses. The bifurcation regions are both widely patent. The internal carotid arteries demonstrate normal calibers and tortuous courses. Posterior circulation: The origins of the vertebral arteries both appear widely patent. The more superior extracranial portions of both vertebral arteries also demonstrate normal courses and calibers. They join to form a normal appearing basilar artery. Soft tissues: Left intraparotid soft tissue density measuring 7 mm in short axis. Bones: No suspicious bony lesions. Visualized cervical spine appears normally aligned. Degenerative changes of the spine. IMPRESSION: No significant intracranial arterial abnormality is seen. No significant abnormality is seen within the arteries of the neck. Left intraparotid soft tissue density measuring 7 mm in short axis, may represent a lymph node versus primary parotid neoplasm. Any quantitative measurements of stenosis were performed using NASCET criteria. Dictated by: Pasquale Wei M.D. on 11/04/2024 at 12:41 Approved by: Pasquale Wei M.D. on 11/04/2024 at 12:47 MRI brain: Radiologist's Impression: [place] [address] Magnetic Resonance Report Signed Patient: Chandni Guzmán MR#: [id number] : 1965 Acct:[id number] Age/Sex: 59 / M Date of Service: 11/04/24 Loc: ED Accession Number: [id number] Procedure: MR head/brain wo con Ordering Provider: Hal Guzman MD PROCEDURE: MR HEAD/BRAIN WO CON INDICATIONS: dizzy TECHNIQUE: Non-contrast axial T1 spin echo, axial T2 fast spin echo, sagittal and axial FLAIR, coronal T2 fast spin echo, axial gradient echo, axial diffusion and ADC through the brain. COMPARISON: , CT, CT HEAD/BRAIN WO CON, 11/04/2024, 11:40. FINDINGS: Image quality: Excellent. CSF spaces: Ventricles appear symmetric in size and shape. Basal cisterns are patent. No extra-axial fluid collections. Brain: No intracranial bleeds or mass effects. There is cerebral volume loss for age. There are periventricular and deep white matter chronic small vessel ischemic changes. Brainstem appears normal. Diffusion-weighted images show no acute infarct. No chronic ischemic insults. Normal intravascular flow voids are present. Single focus of susceptibility artifact in the right frontal lobe near the vertex, may represent punctate calcification or sequela of prior chronic hypertensive microhemorrhage. Skull and face: Calvarial bone marrow is normal in signal. Orbits are normal. Left lens replacement. Sinuses: Sinuses and mastoids are clear. IMPRESSION: No acute or subacute infarct. No acute intracranial abnormalities. Mild age-related global volume loss and chronic microvascular ischemic changes. Dictated by: Pasquale Wei M.D. on 11/04/2024 at 13:56 Approved by: Pasquale Wei M.D. on 11/04/2024 at 13:59 [facility] Narrative Medical decision making narrative: Patient here for intractable daily dizziness for the past 1 week. At times it feels like he is spinning and sometimes items around him are spinning. Has to hold onto things when it gets really bad. He has had nausea and vomiting as well. Patient has had stroke in the past with dizziness. Patient just had LAD stent placed at [facility] 3 weeks ago. Denies any chest pain. No black or bloody stools. Denies any palpitations. Dizziness is worse with movement and eye movement. No prior history of vertigo. No history of brain aneurysm. No vision changes. Fast exam is negative. No slurred speech or facial droop. No limb numbness tingling or weakness.Patient did see primary care, Dr. Nick for this and was discussed and thought may be sinus or ear related. However treatments followed and no improvement.. No meclizine was started After history and exam, CBC CMP troponin EKG CT head CT angiogram head and neck meclizine Zofran normal saline [facility] Medical records reviewed: No recent visit for this complaint Differential considered: Includes but not limited to stroke vertigo arrhythmia anemia Lab Test results independently reviewed as above. Pertinent findings: WBC 8.3 hemoglobin 15.9 sodium 133 potassium 5.0 BUN 27 creatinine 2.03 GFR 37 glucose 371 troponin less than 0.012 Independently reviewed EKG normal sinus rhythm rate [address] elevation or depression Imaging studies independently reviewed: CT head CT angiogram head and neck MRI brain no acute finding Consultations: None indicated at this time Treatments: Meclizine Zofran normal saline Re-evaluations: 2:16 p.m.. Updated patient results. He is feeling much much much better after meclizine. He is not dizzy at lying at rest. He was slightly dizzy when moving from the MRI machine but none since then. Reviewed with them likely vertigo. He agrees. Return precautions reviewed. Prescription provided. Work note provided. He desires discharge home Discussion: Appropriate for discharge home exam is reassuring. Return precautions reviewed with patient. Patient feeling significantly better after conservative treatment with meclizine and IV fluids. Nontoxic at discharge. Clinically not stroke. He desires discharge home. He will see Dr. Nick in a week for re-evaluation Diagnosis: Vertigo Discharge Plan Departure Patient Disposition: Home Clinical Impression: Vertigo Instructions: DI for Vertigo Activity Restrictions/Additional Instructions: I am glad you are feeling better. Prescriptions have been sent to your pharmacy to product picker. Work note has been provided for you. See your family doctor in a week for re-evaluation. 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 See Rx Instructions .Route Qty: 1 0RF Rx Instructions: As directed (DME) Dexcom G7 Sensor Device See Rx Instructions .Route Qty: 1 12RF Rx Instructions: As directed amlodipine 5 mg tablet 5 mg PO DAILY hydralazine 50 mg tablet 50 mg PO BID Pradaxa 150 mg capsule 150 mg PO BID atorvastatin 10 mg tablet 10 mg PO DAILY carvedilol 25 mg tablet 25 mg PO BID losartan 100 mg tablet 100 mg PO DAILY Qty: 90 3RF Jardiance 10 mg tablet 10 mg PO DAILY Brilinta 90 mg tablet 90 mg PO DAILY glipizide 10 mg tablet 10 mg PO BID Qty: 180 3RF Ozempic 0.25 mg or 0.5 mg (2 mg/3 mL) pen injector 0.25 mg SUBCUT QWEEK Qty: 3 0RF Rx Instructions: for 4 weeks Ozempic 0.25 mg or 0.5 mg (2 mg/3 mL) pen injector 0.5 mg SUBCUT QWEEK Qty: 3 0RF Rx Instructions: use after 0.25mg dose, once weekly clonidine HCl 0.1 mg tablet 0.1 mg PO BEDTIME Referrals: Rodo Nick MD [Primary Care Provider] - Stand Alone Forms: Patient Portal/API/Survey, Work Release Note
--- NOTE | 2024-11-04 11:38 | EKG_ITS ---
[address] [address] Test Date: 2024-11-04 Pat Name: Chandni Guzmán Department: 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
[2024-11-04 11:41] LABS: Add Manual Diff / Slide Review NO; Basophils Absolute Auto 0 /uL (0-100); Basophils Percent Auto 0.4 % (0-2); Eosinophils Absolute Auto 100 /uL (0-450); Eosinophils Percent Auto 1.6 % (2-4); Hematocrit 47.3 % (41-53); Hemoglobin 15.9 g/dL (13.5-17.5); Lymphocytes Absolute Auto 700 /uL (1100-4500); Lymphocytes Percent Auto 8.6 % (25-40); Mean Corpuscular HGB Conc 33.7 % (30-36); Mean Corpuscular Hemoglobin 29.8 PG (26-34); Mean Corpuscular Volume 88.4 fL (80-100); Monocytes Absolute Auto 500 /uL (0-900); Monocytes Percent Auto 5.9 % (3-14); Neutrophils Absolute Auto 7000 /uL (1500-7000); Neutrophils Percent Auto 83.5 % (50-75); Platelet Count 205 X10^3/uL (150-400); Red Blood Cell Count 5.35 X10^6/uL (4.5-5.9); Red Cell Distribution Width 13.3 % (11.6-14.8); White Blood Cell Count 8.3 X10^3/uL (4.5-11.0)
[2024-11-04 11:48] LABS: Alanine Aminotransferase 27 IU/L (<50); Albumin 4.4 g/dL (3.5-5.0); Albumin Globulin Ratio 1.5 (1.0-2.8); Alkaline Phosphatase 109 U/L (38-126); Aspartate Aminotransferase 29 IU/L (17-59); BUN Creatinine Ratio 13.3 (6-22); Bilirubin Total 1.1 mg/dL (0.2-1.3); Blood Urea Nitrogen 27 mg/dL (9-20); Carbon Dioxide 19 mmol/L (22-32); Chloride 101 mmol/L (98-107); Estimated Glomerular Filt Rate 37 mL/min (>60); Glucose 371 mg/dL (80-110); HEMOLYSIS 15 (0-50); Sodium 133 mmol/L (137-145); Total Protein 7.4 g/dL (6.3-8.2)
[2024-11-04] MEDS: ONDANSETRON 4 MG/2 ML INJ IV (11:49)
[2024-11-04] MEDS: MECLIZINE HCL 12.5 MG TABLET 50 MG PO (11:49)
[2024-11-04] MEDS: SODIUM CHLORIDE 0.9% 1,000 ML 1000 ML IV (11:49)
[2024-11-04 12:00] LABS: Troponin I < 0.012 ng/mL (0.01-0.034)
--- NOTE | 2024-11-04 13:06 | DI.MRI.S_ITS ---
PROCEDURE: MR HEAD/BRAIN WO CON INDICATIONS: dizzy TECHNIQUE: Non-contrast axial T1 spin echo, axial T2 fast spin echo, sagittal and axial FLAIR, coronal T2 fast spin echo, axial gradient echo, axial diffusion and ADC through the brain. COMPARISON: [facility], CT, CT HEAD/BRAIN WO CON, 11/04/2024, 11:40. FINDINGS: Image quality: Excellent. CSF spaces: Ventricles appear symmetric in size and shape. Basal cisterns are patent. No extra-axial fluid collections. Brain: No intracranial bleeds or mass effects. There is cerebral volume loss for age. There are periventricular and deep white matter chronic small vessel ischemic changes. Brainstem appears normal. Diffusion-weighted images show no acute infarct. No chronic ischemic insults. Normal intravascular flow voids are present. Single focus of susceptibility artifact in the right frontal lobe near the vertex, may represent punctate calcification or sequela of prior chronic hypertensive microhemorrhage. Skull and face: Calvarial bone marrow is normal in signal. Orbits are normal. Left lens replacement. Sinuses: Sinuses and mastoids are clear. IMPRESSION: No acute or subacute infarct. No acute intracranial abnormalities. Mild age-related global volume loss and chronic microvascular ischemic changes. Dictated by: Pasquale Wei M.D. on 11/04/2024 at 13:56 Approved by: Pasquale Wei M.D. on 11/04/2024 at 13:59
== END 2024-11-04 14:29 | disposition home or self-care (01) ==
PROVIDERS: Emergency Provider Emergency Medicine; PCP Internal Medicine
DX: R42 Dizziness and giddiness (principal); I25.10 Atherosclerotic heart disease of native coronary artery without angina pectoris; Z95.5 Presence of coronary angioplasty implant and graft
CPT/HCPCS: 70450; 70496; 70498; 70551; 80053; 84484; 85025; 93005; 96361; 96374; 99284; J2405; Q9967

== ENCOUNTER → 2025-01-21 15:43 | Outpatient (CLI) | payer OTHER, SELFPAY ==
--- NOTE | 2025-01-21 15:44 | DI.MRI.S_ITS ---
PROCEDURE: MR PELVIC PROSTATE PROTOCOL INDICATIONS: 59 y/o M w/ elevated PSA, please eval. TECHNIQUE: Coronal HASTE, axial T1 FSE with fat saturation, 3-plane nonbreath-hold T2 FSE. After the administration of contrast, dynamic axial, delayed axial and coronal VIBE or 2-D FLASH with fat saturation through the pelvis. Diffusion weighted imaging and ADC was performed. COMPARISON: None. FINDINGS: Image quality: Diffusion weighted and dynamic contrast enhanced images are diagnostic. Prostate: Gland size is 6.6 x 4.6 x 5.4 cm; ellipsoid gland volume is 85.3 mL. Calculated PSA density 0.083 Transitional zone heterogenous nodules are present, either well encapsulated or mostly encapsulated, compatible with PI-RADS 1 or 2 likely BPH nodules. Right apex medial peripheral zone lesion measures 8 x 6 mm (4/20). T2 score 4. DWI score 4 (24/20). DCE positive. PI-RADS 4. Right transitional zone apex lesion measures 9 mm (4/19) T2 score 3. DWI score 4. DCE positive. PI-RADS 3. Genitourinary system: Under distended bladder with bladder wall thickening. Bowel and peritoneum: Unremarkable lower abdominal loops. No drainable ascites or abscess Nodes and vessels: No aneurysmal artery identified. No enlarged lymph nodes by size criteria Soft tissues: Small fat containing inguinal hernias. Bones: No aggressive appearing osseous abnormality. IMPRESSION: Small PI-RADS 3 and 4 lesions as described above at the apex of the prostate. No definite extracapsular disease or seminal vesicle involvement. No suspicious osseous lesion or enlarged lymph nodes by size criteria. Under distended bladder wall thickening, often from chronic obstruction. Cystoscopy can further evaluate if necessary. Dictated by: Hussein Naranjo M.D. on 01/22/2025 at 9:34 Approved by: Hussein Naranjo M.D. on 01/22/2025 at 9:40
== END ==
PROVIDERS: PCP Internal Medicine; Referring Provider Urology; Visit Provider Urology
DX: R97.20 Elevated prostate specific antigen [PSA] (principal); N42.89 Other specified disorders of prostate
CPT/HCPCS: 72197; A9579

== ENCOUNTER → 2025-07-28 10:45 | Outpatient (CLI) | payer OTHER, SELFPAY ==
[2025-07-28 11:56] LABS: Blood Urea Nitrogen 31 mg/dL (9-20); Calcium 9.4 mg/dL (8.4-10.2); Carbon Dioxide 25 mmol/L (22-32); Chloride 102 mmol/L (98-107); Estimated Glomerular Filt Rate 31 mL/min (>60); Glucose 199 mg/dL (70-99); HEMOLYSIS < 15 (0-50); Sodium 137 mmol/L (137-145)
[2025-07-28 11:57] LABS: Potassium 5.4 mmol/L (3.4-5.1)
[2025-07-28 12:01] LABS: Hemoglobin A1C% w Est Avg Glu 7.7 % (4.0-6.0)
[2025-07-28 12:26] LABS: Prostate Specific Antigen 9.03 ng/mL (0.10-4.00)
== END ==
PROVIDERS: PCP Internal Medicine; Referring Provider Internal Medicine; Visit Provider Internal Medicine
DX: C61 Malignant neoplasm of prostate (principal); E11.65 Type 2 diabetes mellitus with hyperglycemia; N18.32 Chronic kidney disease, stage 3b
CPT/HCPCS: 36415; 80048; 83036; 84153